=== PATIENT | male | born 1940 | race Caucasian/White ===

== ENCOUNTER 2018-06-20 06:14 | Inpatient (IN) | payer MEDICARE, OTHER ==
[2018-06-20] MEDS: HYDROCODONE/APAP (5/325) TAB PO (06:48)
[2018-06-20] MEDS ORDERED: HYDROmorphONE 2 MG/ML SYG IM (07:06)
[2018-06-20 07:31] LABS: ADD MAN DIFF? NO
[2018-06-20 07:33] LABS: WHITE BLOOD COUNT 8.7 10^3/ul (4.8-10.8)
[2018-06-20 07:33] LABS: BASOPHILS % 0.5 % (0.0-2.0); EOSINOPHILS # 0.1 10^3/ul (0.0-0.5); HEMATOCRIT 35.1 % (42.0-52.0); HEMOGLOBIN 11.1 g/dl (14.0-18.0); LYMPHOCYTES % 11.8 % (15.0-51.0); MEAN CORPUSCULAR HEMOGLOBIN 29.8 pg (29.0-33.0); MEAN CORPUSCULAR HGB CONC 31.6 g/dl (32.0-37.0); MEAN CORPUSCULAR VOLUME 94.4 fl (82.0-101.0); MEAN PLATELET VOLUME 11.1 fl (7.4-10.4); MONOCYTES % 11.7 % (0.0-11.0); NEUTROPHIL # 6.5 10^3/ul (1.6-7.5); NEUTROPHILS % 74.8 % (39.0-77.0); PLATELET COUNT 155 10^3/UL (140-415); RED BLOOD COUNT 3.72 10^6/ul (4.70-6.10); RED CELL DISTRIBUTION WIDTH 17.4 % (11.5-14.5)
[2018-06-20] MEDS: HYDROmorphONE 1 MG/ML SYG IV ×4 (07:38→19:24)
[2018-06-20] MEDS: ONDANSETRON 4 MG INJ IV ×2 (07:39→11:05)
[2018-06-20] MEDS: SOD CHLORIDE 0.9% 1,000 ML IV (07:39)
[2018-06-20] MEDS: CIPROFLOXACIN 400MG/D5W 200 ML IVPB (07:39)
[2018-06-20] MEDS: ONDANSETRON (ODT) 4 MG TAB ODT (07:40)
[2018-06-20 08:04] LABS: ALANINE AMINOTRANSFERASE 35 IU/L (13-69); ALBUMIN 2.9 g/dl (3.3-4.9); ALBUMIN/GLOBULIN RATIO 1.07; ALKALINE PHOSPHATASE 58 IU/L (42-121); ANION GAP 12 (8-16); ASPARTATE AMINO TRANSFERASE 26 IU/L (15-46); BILIRUBIN,INDIRECT 0.5 mg/dl (0-1.1); BILIRUBIN,TOTAL 0.5 mg/dl (0.2-1.3); BLOOD UREA NITROGEN 24 mg/dl (7-20); CALCIUM 8.9 mg/dl (8.4-10.2); CARBON DIOXIDE 25 mmol/L (21-31); CHLORIDE 106 mmol/L (97-110); CREATININE 2.03 mg/dl (0.61-1.24); GLUCOSE 121 mg/dl (70-220); POTASSIUM 4.1 mmol/L (3.5-5.1); SODIUM 139 mmol/L (135-144); TOTAL PROTEIN 5.6 g/dl (6.1-8.1)
[2018-06-20 08:40] LABS: TROPONIN-I 0.038 ng/ml (0.000-0.120)
[2018-06-20 08:59] LABS: PROSTATE SPECIFIC ANTIGEN 4.3 ng/ml (0.0-4.0)
[2018-06-20 09:23] LABS: ADD UMIC YES; UR ASCORBIC ACID NEGATIVE (NEGATIVE); UR BILIRUBIN (Dip) NEGATIVE (NEGATIVE); UR BLOOD (Dip) 2+ mg/dL (NEGATIVE); UR CLARITY CLOUDY (CLEAR); UR COLOR RED (YELLOW); UR GLUCOSE (Dip) 1+ mg/dL (NEGATIVE); UR KETONES (Dip) NEGATIVE (NEGATIVE); UR LEUKOCYTE ESTERASE (Dip) TRACE Leu/ul (NEGATIVE); UR NITRITE (Dip) NEGATIVE (NEGATIVE); UR RBC > 182 /HPF (0-5); UR SPECIFIC GRAVITY (Dip) 1.015 (1.003-1.030); UR TOTAL PROTEIN (Dip) 2+ mg/dl (NEGATIVE); UR UROBILINOGEN (Dip) NEGATIVE (NEGATIVE)
[2018-06-20 09:46] LABS: UR WBC > 182 /HPF (0-5)
[2018-06-20] MEDS ORDERED: ACETAMINOPHEN 325 MG TAB PO (10:30)
[2018-06-20] MEDS ORDERED: ONDANSETRON 4 MG INJ IV (10:30)
[2018-06-20] MEDS ORDERED: NACL 0.9% 3 ML SYG IV (14:00)
[2018-06-20] MEDS: morphine 2 MG INJ IV ×2 (16:07→20:19)
[2018-06-20] MEDS: CEFTRIAXONE 1 GM/50 ML (PMX) 50 ML IVPB (18:31)
[2018-06-20] MEDS: TAMSULOSIN (SR) 0.4 MG CAP PO (20:19)
[2018-06-20 20:52] LABS: PT RATIO 1.4
[2018-06-20 20:57] LABS: INR 1.48; PROTIME 18.2 Sec (11.9-14.9)
[2018-06-20 20:58] LABS: PARTIAL THROMBOPLASTIN TIME 27.4 Sec (25.0-35.0)
[2018-06-21] MEDS: morphine 2 MG INJ IV ×2 (00:11→02:00)
[2018-06-21] MEDS: HYDROmorphONE 2 MG/ML SYG IV (04:10)
[2018-06-21] MEDS ORDERED: NALOXONE (0.4 MG/ML) INJ (04:24)
[2018-06-21] MEDS: HYOSCYAMINE 0.125 MG SUBL TAB SL ×2 (06:48→17:08)
[2018-06-21] MEDS: LEVOTHYROXINE 150 MCG TAB PO (06:49)
[2018-06-21] MEDS: HYDROmorphONE 1 MG/ML SYG IV ×4 (06:49→18:52)
[2018-06-21 07:07] LABS: ADD MAN DIFF? NO
[2018-06-21 07:13] LABS: WHITE BLOOD COUNT 13.1 10^3/ul (4.8-10.8)
[2018-06-21 07:13] LABS: ABNORMAL IP MESSAGE 1; BASOPHILS % 0.3 % (0.0-2.0); EOSINOPHILS # 0.1 10^3/ul (0.0-0.5); EOSINOPHILS % 0.7 % (0.0-7.0); HEMATOCRIT 37.7 % (42.0-52.0); HEMOGLOBIN 11.8 g/dl (14.0-18.0); LYMPHOCYTES % 7.9 % (15.0-51.0); MEAN CORPUSCULAR HEMOGLOBIN 29.6 pg (29.0-33.0); MEAN CORPUSCULAR HGB CONC 31.3 g/dl (32.0-37.0); MEAN CORPUSCULAR VOLUME 94.5 fl (82.0-101.0); MEAN PLATELET VOLUME 12.1 fl (7.4-10.4); MONOCYTE # 1.7 10^3/ul (0.3-0.9); NEUTROPHIL # 10.2 10^3/ul (1.6-7.5); NEUTROPHILS % 77.7 % (39.0-77.0); PLATELET COUNT 171 10^3/UL (140-415); POSITIVE DIFF @See below; RED BLOOD COUNT 3.99 10^6/ul (4.70-6.10); RED CELL DISTRIBUTION WIDTH 17.2 % (11.5-14.5)
[2018-06-21 07:53] LABS: ALANINE AMINOTRANSFERASE 30 IU/L (13-69); ALBUMIN 3.1 g/dl (3.3-4.9); ALBUMIN/GLOBULIN RATIO 1.03; ALKALINE PHOSPHATASE 65 IU/L (42-121); ANION GAP 13 (8-16); ASPARTATE AMINO TRANSFERASE 32 IU/L (15-46); BILIRUBIN,INDIRECT 0.6 mg/dl (0-1.1); BILIRUBIN,TOTAL 0.6 mg/dl (0.2-1.3); BLOOD UREA NITROGEN 26 mg/dl (7-20); CARBON DIOXIDE 22 mmol/L (21-31); CHLORIDE 108 mmol/L (97-110); CREATININE 2.15 mg/dl (0.61-1.24); GLUCOSE 137 mg/dl (70-220); POTASSIUM 4.6 mmol/L (3.5-5.1); SODIUM 138 mmol/L (135-144); TOTAL PROTEIN 6.1 g/dl (6.1-8.1)
[2018-06-21] MEDS: AMIODARONE 200 MG TAB PO (09:20)
[2018-06-21 09:34] LABS: HEMOGLOBIN A1C 5.8 % (0-5.9)
[2018-06-21 12:42] LABS: AADO2 Arterial 93.8 mmHg (7.0-24.0); Arterial Base Excess -6.2 mmol/L (-3.0-3); Arterial Blood Gas Oxygen Sat 98.5 mmHG (95.0-100.0); Arterial COHb 0.1 % (0.0-3.0); Arterial Fraction of Oxyhgb 98.1 % (93.0-99.0); Arterial MetHb 0.3 % (0.0-1.5); Arterial Total Hemglobin 12.6 g/dl (12.0-18.0); Arterial pCO2 42.1 mmhg (35-45); Blood Gas PS 15; MODE MASK - CPAP; Site Right Brachial
[2018-06-21 13:44] LABS: LACTIC ACID 1.1 mmol/L (0.5-2.0)
[2018-06-21] MEDS: CEFTRIAXONE 1 GM/50 ML (PMX) 50 ML IVPB (17:03)
[2018-06-21] MEDS: morphine LIQ (10 MG/5 ML) CUP PO (20:49)
[2018-06-21] MEDS: TAMSULOSIN (SR) 0.4 MG CAP PO (20:49)
[2018-06-22] MEDS: HYDROmorphONE 1 MG/ML SYG IV ×6 (00:02→22:01)
[2018-06-22] MEDS: morphine LIQ (10 MG/5 ML) CUP PO ×3 (04:53→19:38)
[2018-06-22 05:43] LABS: ADD MAN DIFF? NO
[2018-06-22 05:51] LABS: ABNORMAL IP MESSAGE 1; BASOPHILS % 0.3 % (0.0-2.0); EOSINOPHILS # 0.2 10^3/ul (0.0-0.5); EOSINOPHILS % 1.5 % (0.0-7.0); HEMATOCRIT 35.5 % (42.0-52.0); LYMPHOCYTES # 1.2 10^3/ul (0.8-2.9); LYMPHOCYTES % 11.1 % (15.0-51.0); MEAN CORPUSCULAR HEMOGLOBIN 29.6 pg (29.0-33.0); MEAN CORPUSCULAR VOLUME 95.7 fl (82.0-101.0); MEAN PLATELET VOLUME 11.7 fl (7.4-10.4); MONOCYTE # 1.8 10^3/ul (0.3-0.9); MONOCYTES % 15.9 % (0.0-11.0); NEUTROPHIL # 7.9 10^3/ul (1.6-7.5); NEUTROPHILS % 70.8 % (39.0-77.0); PLATELET COUNT 158 10^3/UL (140-415); POSITIVE DIFF @See below; RED BLOOD COUNT 3.71 10^6/ul (4.70-6.10); RED CELL DISTRIBUTION WIDTH 17.2 % (11.5-14.5)
[2018-06-22 05:51] LABS: WHITE BLOOD COUNT 11.1 10^3/ul (4.8-10.8)
[2018-06-22 06:11] LABS: ANION GAP 15 (8-16); BLOOD UREA NITROGEN 37 mg/dl (7-20); CALCIUM 8.9 mg/dl (8.4-10.2); CARBON DIOXIDE 23 mmol/L (21-31); CHLORIDE 105 mmol/L (97-110); CREATININE 2.91 mg/dl (0.61-1.24); GLUCOSE 118 mg/dl (70-220); POTASSIUM 4.7 mmol/L (3.5-5.1); SODIUM 138 mmol/L (135-144)
[2018-06-22] MEDS: HYOSCYAMINE 0.125 MG SUBL TAB SL ×2 (06:38→12:09)
[2018-06-22] MEDS: LEVOTHYROXINE 150 MCG TAB PO (06:38)
[2018-06-22] MEDS: AMIODARONE 200 MG TAB PO (08:47)
[2018-06-22] MEDS: CEFTRIAXONE 1 GM/50 ML (PMX) 50 ML IVPB (17:45)
[2018-06-22] MEDS: TAMSULOSIN (SR) 0.4 MG CAP PO (20:16)
[2018-06-23] MEDS: morphine LIQ (10 MG/5 ML) CUP PO ×3 (00:19→19:29)
[2018-06-23] MEDS: HYDROmorphONE 1 MG/ML SYG IV ×5 (02:13→22:24)
[2018-06-23 06:18] LABS: ADD MAN DIFF? NO
[2018-06-23 06:27] LABS: ABNORMAL IP MESSAGE 1; BASOPHILS % 0.2 % (0.0-2.0); EOSINOPHILS # 0.1 10^3/ul (0.0-0.5); EOSINOPHILS % 1.4 % (0.0-7.0); HEMATOCRIT 31.4 % (42.0-52.0); LYMPHOCYTES # 1.1 10^3/ul (0.8-2.9); MEAN CORPUSCULAR HEMOGLOBIN 30.1 pg (29.0-33.0); MEAN CORPUSCULAR HGB CONC 31.8 g/dl (32.0-37.0); MEAN CORPUSCULAR VOLUME 94.6 fl (82.0-101.0); MEAN PLATELET VOLUME 12.1 fl (7.4-10.4); MONOCYTE # 1.6 10^3/ul (0.3-0.9); MONOCYTES % 17.4 % (0.0-11.0); NEUTROPHIL # 6.2 10^3/ul (1.6-7.5); NEUTROPHILS % 68.7 % (39.0-77.0); PLATELET COUNT 146 10^3/UL (140-415); POSITIVE DIFF @See below; RED BLOOD COUNT 3.32 10^6/ul (4.70-6.10); RED CELL DISTRIBUTION WIDTH 16.9 % (11.5-14.5)
[2018-06-23 06:27] LABS: WHITE BLOOD COUNT 9.1 10^3/ul (4.8-10.8)
[2018-06-23] MEDS: LEVOTHYROXINE 150 MCG TAB PO (06:46)
[2018-06-23] MEDS: AMIODARONE 200 MG TAB PO (09:06)
[2018-06-23 09:13] LABS: ANION GAP 15 (8-16); BLOOD UREA NITROGEN 49 mg/dl (7-20); CALCIUM 8.5 mg/dl (8.4-10.2); CARBON DIOXIDE 24 mmol/L (21-31); CHLORIDE 102 mmol/L (97-110); CREATININE 3.13 mg/dl (0.61-1.24); GLUCOSE 110 mg/dl (70-220); MAGNESIUM 2.2 mg/dl (1.7-2.5); POTASSIUM 4.5 mmol/L (3.5-5.1); SODIUM 136 mmol/L (135-144)
[2018-06-23] MEDS: SENNA TAB PO (20:35)
[2018-06-23] MEDS: TAMSULOSIN (SR) 0.4 MG CAP PO (20:35)
[2018-06-23] MEDS: MAGNESIUM HYDROXIDE 30ML CUP PO (20:35)
[2018-06-24] MEDS: morphine LIQ (10 MG/5 ML) CUP PO ×2 (02:43→09:04)
[2018-06-24 05:43] LABS: ADD MAN DIFF? NO
[2018-06-24 05:48] LABS: BASOPHILS % 0.2 % (0.0-2.0); EOSINOPHILS # 0.1 10^3/ul (0.0-0.5); EOSINOPHILS % 1.1 % (0.0-7.0); HEMATOCRIT 31.2 % (42.0-52.0); LYMPHOCYTES # 0.6 10^3/ul (0.8-2.9); LYMPHOCYTES % 7.6 % (15.0-51.0); MEAN CORPUSCULAR HEMOGLOBIN 29.7 pg (29.0-33.0); MEAN CORPUSCULAR HGB CONC 32.1 g/dl (32.0-37.0); MEAN CORPUSCULAR VOLUME 92.6 fl (82.0-101.0); MEAN PLATELET VOLUME 11.3 fl (7.4-10.4); MONOCYTE # 1.3 10^3/ul (0.3-0.9); MONOCYTES % 16.1 % (0.0-11.0); NEUTROPHIL # 6.1 10^3/ul (1.6-7.5); NEUTROPHILS % 74.5 % (39.0-77.0); PLATELET COUNT 155 10^3/UL (140-415); RED BLOOD COUNT 3.37 10^6/ul (4.70-6.10); RED CELL DISTRIBUTION WIDTH 16.3 % (11.5-14.5)
[2018-06-24 05:48] LABS: WHITE BLOOD COUNT 8.3 10^3/ul (4.8-10.8)
[2018-06-24 06:21] LABS: ANION GAP 12 (8-16); BLOOD UREA NITROGEN 62 mg/dl (7-20); CALCIUM 8.4 mg/dl (8.4-10.2); CARBON DIOXIDE 24 mmol/L (21-31); CHLORIDE 104 mmol/L (97-110); GLUCOSE 138 mg/dl (70-220); POTASSIUM 4.4 mmol/L (3.5-5.1); SODIUM 136 mmol/L (135-144)
[2018-06-24] MEDS: HYDROmorphONE 1 MG/ML SYG IV ×5 (06:34→22:01)
[2018-06-24] MEDS: LEVOTHYROXINE 150 MCG TAB PO (06:34)
[2018-06-24] MEDS: SENNA TAB PO ×2 (09:04→21:38)
[2018-06-24] MEDS: AMIODARONE 200 MG TAB PO (09:04)
[2018-06-24] MEDS ORDERED: LEVALBUTEROL (NEB) 0.63 MG/3 ML AMP HHN (14:30)
[2018-06-24] MEDS: ONDANSETRON 4 MG INJ IV (17:10)
[2018-06-24] MEDS: TAMSULOSIN (SR) 0.4 MG CAP PO (21:37)
[2018-06-24] MEDS: ATORVASTATIN 20 MG TAB PO (21:38)
[2018-06-24] MEDS: AMLODIPINE 5 MG TAB PO (21:38)
[2018-06-25] MEDS: HYDROmorphONE 1 MG/ML SYG IV ×5 (02:01→19:15)
[2018-06-25 05:42] LABS: ADD MAN DIFF? NO
[2018-06-25 05:47] LABS: BASOPHILS % 0.3 % (0.0-2.0); EOSINOPHILS # 0.2 10^3/ul (0.0-0.5); EOSINOPHILS % 2.6 % (0.0-7.0); HEMATOCRIT 31.6 % (42.0-52.0); LYMPHOCYTES # 0.9 10^3/ul (0.8-2.9); LYMPHOCYTES % 13.3 % (15.0-51.0); MEAN CORPUSCULAR HEMOGLOBIN 29.8 pg (29.0-33.0); MEAN CORPUSCULAR HGB CONC 31.6 g/dl (32.0-37.0); MEAN PLATELET VOLUME 11.1 fl (7.4-10.4); MONOCYTE # 1.3 10^3/ul (0.3-0.9); MONOCYTES % 18.2 % (0.0-11.0); NEUTROPHIL # 4.6 10^3/ul (1.6-7.5); NEUTROPHILS % 65.2 % (39.0-77.0); PLATELET COUNT 166 10^3/UL (140-415); RED BLOOD COUNT 3.36 10^6/ul (4.70-6.10); RED CELL DISTRIBUTION WIDTH 16.5 % (11.5-14.5)
[2018-06-25] MEDS: HYOSCYAMINE 0.125 MG SUBL TAB SL (05:53)
[2018-06-25 06:08] LABS: MAGNESIUM 3.1 mg/dl (1.7-2.5)
[2018-06-25 06:15] LABS: ANION GAP 12 (8-16); BLOOD UREA NITROGEN 57 mg/dl (7-20); CALCIUM 8.6 mg/dl (8.4-10.2); CARBON DIOXIDE 26 mmol/L (21-31); CHLORIDE 105 mmol/L (97-110); CREATININE 2.11 mg/dl (0.61-1.24); GLUCOSE 97 mg/dl (70-220); POTASSIUM 4.6 mmol/L (3.5-5.1); SODIUM 138 mmol/L (135-144)
[2018-06-25 06:18] LABS: CHOL/HDL RATIO 3.6 RATIO; HDL CHOLESTEROL 36 mg/dl (31-75); LDL CHOLESTEROL,CALCULATED 71 mg/dl; TRIGLYCERIDES 117 mg/dl (0-149)
[2018-06-25 06:18] LABS: CHOLESTEROL 130 mg/dl (100-200)
[2018-06-25] MEDS: LEVOTHYROXINE 150 MCG TAB PO (07:00)
[2018-06-25] MEDS: SENNA TAB PO ×2 (09:04→20:50)
[2018-06-25] MEDS: AMIODARONE 200 MG TAB PO (09:05)
[2018-06-25] MEDS: AMLODIPINE 5 MG TAB PO ×2 (09:05→20:51)
[2018-06-25] MEDS: NA PHOSPHATE/BIPHOS 133 ML ENEMA PR (10:12)
[2018-06-25] MEDS: ATORVASTATIN 20 MG TAB PO (20:50)
[2018-06-25] MEDS: TAMSULOSIN (SR) 0.4 MG CAP PO (20:50)
[2018-06-25] MEDS: POLYETHYLENE GLYCOL 17 GM PACKET PO (20:51)
[2018-06-25] MEDS: morphine LIQ (10 MG/5 ML) CUP PO (21:03)
[2018-06-26] MEDS: HYDROmorphONE 1 MG/ML SYG IV ×3 (01:00→16:18)
[2018-06-26] MEDS: morphine LIQ (10 MG/5 ML) CUP PO ×2 (02:57→11:47)
[2018-06-26 06:37] LABS: ADD MAN DIFF? NO
[2018-06-26 06:44] LABS: BASOPHILS % 0.6 % (0.0-2.0); EOSINOPHILS # 0.2 10^3/ul (0.0-0.5); EOSINOPHILS % 2.5 % (0.0-7.0); HEMOGLOBIN 9.6 g/dl (14.0-18.0); LYMPHOCYTES # 0.8 10^3/ul (0.8-2.9); LYMPHOCYTES % 11.1 % (15.0-51.0); MEAN CORPUSCULAR HEMOGLOBIN 29.8 pg (29.0-33.0); MEAN CORPUSCULAR VOLUME 93.2 fl (82.0-101.0); MEAN PLATELET VOLUME 11.5 fl (7.4-10.4); MONOCYTE # 1.2 10^3/ul (0.3-0.9); MONOCYTES % 16.7 % (0.0-11.0); NEUTROPHIL # 4.8 10^3/ul (1.6-7.5); NEUTROPHILS % 68.7 % (39.0-77.0); PLATELET COUNT 176 10^3/UL (140-415); RED BLOOD COUNT 3.22 10^6/ul (4.70-6.10); RED CELL DISTRIBUTION WIDTH 16.4 % (11.5-14.5)
[2018-06-26 06:44] LABS: WHITE BLOOD COUNT 6.9 10^3/ul (4.8-10.8)
[2018-06-26 07:03] LABS: MAGNESIUM 2.6 mg/dl (1.7-2.5)
[2018-06-26 07:03] LABS: PHOSPHORUS 3.4 mg/dl (2.5-4.9)
[2018-06-26] MEDS: LEVOTHYROXINE 150 MCG TAB PO (07:04)
[2018-06-26 07:31] LABS: ANION GAP 10 (8-16); BLOOD UREA NITROGEN 43 mg/dl (7-20); CALCIUM 8.4 mg/dl (8.4-10.2); CARBON DIOXIDE 26 mmol/L (21-31); CHLORIDE 106 mmol/L (97-110); CREATININE 1.53 mg/dl (0.61-1.24); GLUCOSE 94 mg/dl (70-220); POTASSIUM 4.3 mmol/L (3.5-5.1); SODIUM 138 mmol/L (135-144)
[2018-06-26] MEDS: POLYETHYLENE GLYCOL 17 GM PACKET PO ×2 (09:00→21:00)
[2018-06-26] MEDS: AMIODARONE 200 MG TAB PO (09:00)
[2018-06-26] MEDS: AMLODIPINE 5 MG TAB PO (09:00)
[2018-06-26] MEDS: SENNA TAB PO ×2 (09:01→21:16)
[2018-06-26] MEDS: oxyCODONE (CR) 15 MG TAB [oxyCONTIN] PO ×2 (15:08→21:16)
[2018-06-26] MEDS: TAMSULOSIN (SR) 0.4 MG CAP PO (21:15)
[2018-06-26] MEDS: ATORVASTATIN 20 MG TAB PO (21:18)
[2018-06-27] MEDS: ALPRAZOLAM 0.25 MG TAB PO (00:59)
[2018-06-27 06:45] LABS: ALANINE AMINOTRANSFERASE 40 IU/L (13-69); ALBUMIN 2.4 g/dl (3.3-4.9); ALBUMIN/GLOBULIN RATIO 0.92; ALKALINE PHOSPHATASE 51 IU/L (42-121); ANION GAP 10 (8-16); ASPARTATE AMINO TRANSFERASE 33 IU/L (15-46); BILIRUBIN,INDIRECT 0.3 mg/dl (0-1.1); BILIRUBIN,TOTAL 0.3 mg/dl (0.2-1.3); BLOOD UREA NITROGEN 27 mg/dl (7-20); CALCIUM 8.3 mg/dl (8.4-10.2); CARBON DIOXIDE 26 mmol/L (21-31); CHLORIDE 108 mmol/L (97-110); CREATININE 1.18 mg/dl (0.61-1.24); GLUCOSE 78 mg/dl (70-220); MAGNESIUM 2.2 mg/dl (1.7-2.5); SODIUM 140 mmol/L (135-144)
[2018-06-27 06:47] LABS: B-TYPE NATRIURETIC PEPTIDE 4990 PG/ML (0-450)
[2018-06-27] MEDS: LEVOTHYROXINE 150 MCG TAB PO (07:41)
[2018-06-27] MEDS: oxyCODONE (CR) 15 MG TAB [oxyCONTIN] PO ×2 (08:51→20:25)
[2018-06-27] MEDS: POLYETHYLENE GLYCOL 17 GM PACKET PO ×2 (08:51→21:00)
[2018-06-27] MEDS: SENNA TAB PO ×2 (08:51→21:00)
[2018-06-27] MEDS: AMIODARONE 200 MG TAB PO (08:52)
[2018-06-27] MEDS: AMLODIPINE 5 MG TAB PO (08:52)
[2018-06-27] MEDS: ISOSORBIDE MONONITRATE(SR)60 MG TAB PO (08:52)
[2018-06-27] MEDS: ATORVASTATIN 20 MG TAB PO (20:22)
[2018-06-27] MEDS: TAMSULOSIN (SR) 0.4 MG CAP PO (20:22)
[2018-06-27] MEDS: HYDROmorphONE 1 MG/ML SYG IV (22:47)
[2018-06-28] MEDS: LEVOTHYROXINE 150 MCG TAB PO (07:23)
[2018-06-28] MEDS: oxyCODONE (CR) 15 MG TAB [oxyCONTIN] PO ×3 (08:00→20:09)
[2018-06-28] MEDS: ISOSORBIDE MONONITRATE(SR)60 MG TAB PO (08:00)
[2018-06-28] MEDS: AMLODIPINE 5 MG TAB PO (08:00)
[2018-06-28] MEDS: AMIODARONE 200 MG TAB PO (08:00)
[2018-06-28] MEDS: SENNA TAB PO ×2 (08:01→20:07)
[2018-06-28] MEDS: POLYETHYLENE GLYCOL 17 GM PACKET PO ×2 (08:01→20:08)
[2018-06-28] MEDS: ATORVASTATIN 20 MG TAB PO (20:06)
[2018-06-28] MEDS: TAMSULOSIN (SR) 0.4 MG CAP PO (20:08)
[2018-06-28] MEDS: morphine LIQ (10 MG/5 ML) CUP PO ×2 (21:11→23:36)
[2018-06-28 22:30] LABS: ADD MAN DIFF? NO
[2018-06-28 22:34] LABS: WHITE BLOOD COUNT 9.7 10^3/ul (4.8-10.8)
[2018-06-28 22:34] LABS: BASOPHILS % 0.3 % (0.0-2.0); EOSINOPHILS # 0.2 10^3/ul (0.0-0.5); EOSINOPHILS % 1.6 % (0.0-7.0); HEMATOCRIT 30.6 % (42.0-52.0); HEMOGLOBIN 9.8 g/dl (14.0-18.0); LYMPHOCYTES # 0.8 10^3/ul (0.8-2.9); MEAN CORPUSCULAR HEMOGLOBIN 29.4 pg (29.0-33.0); MEAN CORPUSCULAR VOLUME 91.9 fl (82.0-101.0); MEAN PLATELET VOLUME 11.3 fl (7.4-10.4); MONOCYTE # 1.2 10^3/ul (0.3-0.9); MONOCYTES % 12.7 % (0.0-11.0); NEUTROPHIL # 7.4 10^3/ul (1.6-7.5); NEUTROPHILS % 76.8 % (39.0-77.0); PLATELET COUNT 205 10^3/UL (140-415); RED BLOOD COUNT 3.33 10^6/ul (4.70-6.10); RED CELL DISTRIBUTION WIDTH 16.2 % (11.5-14.5)
[2018-06-28 23:00] LABS: ALANINE AMINOTRANSFERASE 31 IU/L (13-69); ALBUMIN 2.9 g/dl (3.3-4.9); ALBUMIN/GLOBULIN RATIO 1.16; ALKALINE PHOSPHATASE 59 IU/L (42-121); ANION GAP 7 (8-16); ASPARTATE AMINO TRANSFERASE 33 IU/L (15-46); BILIRUBIN,INDIRECT 0.3 mg/dl (0-1.1); BILIRUBIN,TOTAL 0.3 mg/dl (0.2-1.3); BLOOD UREA NITROGEN 20 mg/dl (7-20); CALCIUM 8.2 mg/dl (8.4-10.2); CARBON DIOXIDE 26 mmol/L (21-31); CHLORIDE 106 mmol/L (97-110); CREATININE 1.02 mg/dl (0.61-1.24); GLUCOSE 138 mg/dl (70-220); POTASSIUM 4.1 mmol/L (3.5-5.1); SODIUM 135 mmol/L (135-144); TOTAL PROTEIN 5.4 g/dl (6.1-8.1)
[2018-06-29] MEDS: HYDROmorphONE 1 MG/ML SYG IV ×5 (01:00→23:34)
[2018-06-29] MEDS: LEVOTHYROXINE 150 MCG TAB PO (06:29)
[2018-06-29] MEDS: AMIODARONE 200 MG TAB PO (08:24)
[2018-06-29] MEDS: ISOSORBIDE MONONITRATE(SR)60 MG TAB PO (08:25)
[2018-06-29] MEDS: AMLODIPINE 5 MG TAB PO (08:25)
[2018-06-29] MEDS: SENNA TAB PO ×2 (08:25→20:24)
[2018-06-29] MEDS: POLYETHYLENE GLYCOL 17 GM PACKET PO ×2 (08:25→20:24)
[2018-06-29] MEDS: oxyCODONE (CR) 15 MG TAB [oxyCONTIN] PO ×2 (08:25→20:26)
[2018-06-29] MEDS: ATORVASTATIN 20 MG TAB PO (20:24)
[2018-06-29] MEDS: TAMSULOSIN (SR) 0.4 MG CAP PO (20:24)
[2018-06-29] MEDS: HYOSCYAMINE 0.125 MG SUBL TAB SL (20:26)
[2018-06-29] MEDS: BISACODYL 10 MG SUPP PR (23:34)
[2018-06-30] MEDS: LORAZEPAM 2 MG INJ IV (01:43)
[2018-06-30] MEDS: LEVOTHYROXINE 150 MCG TAB PO (06:14)
[2018-06-30] MEDS ORDERED: IOHEXOL 300MG/ML 30 ML BTL (07:05)
[2018-06-30 07:50] LABS: IMMEDIATE SPIN CROSSMATCH 1 2
[2018-06-30] MEDS ORDERED: INDIGOTINDISULFONATE 0.8% 5 ML INJ (08:04)
[2018-06-30] MEDS: SENNA TAB PO ×2 (09:00→20:50)
[2018-06-30] MEDS: POLYETHYLENE GLYCOL 17 GM PACKET PO ×2 (09:00→20:58)
[2018-06-30] MEDS: oxyCODONE (CR) 15 MG TAB [oxyCONTIN] PO ×2 (09:00→22:33)
[2018-06-30] MEDS: HYDROmorphONE 1 MG/ML SYG IV ×2 (12:03→20:57)
[2018-06-30] MEDS: morphine LIQ (10 MG/5 ML) CUP PO (15:29)
[2018-06-30] MEDS: AMLODIPINE 5 MG TAB PO (15:40)
[2018-06-30] MEDS: AMIODARONE 200 MG TAB PO (15:40)
[2018-06-30] MEDS: ISOSORBIDE MONONITRATE(SR)60 MG TAB PO (15:40)
[2018-06-30] MEDS: TAMSULOSIN (SR) 0.4 MG CAP PO (20:50)
[2018-06-30] MEDS: ATORVASTATIN 20 MG TAB PO (20:50)
[2018-06-30] MEDS: TOLTERODINE (SR) 4 MG CAP PO (23:30)
[2018-07-01] MEDS: HYDROmorphONE 1 MG/ML SYG IV ×2 (00:30→07:40)
[2018-07-01] MEDS: LEVOTHYROXINE 150 MCG TAB PO (07:00)
[2018-07-01] MEDS: POLYETHYLENE GLYCOL 17 GM PACKET PO (08:37)
[2018-07-01] MEDS: AMIODARONE 200 MG TAB PO (08:37)
[2018-07-01] MEDS: SENNA TAB PO ×2 (08:37→20:38)
[2018-07-01] MEDS: AMLODIPINE 5 MG TAB PO (08:38)
[2018-07-01] MEDS: oxyCODONE (CR) 15 MG TAB [oxyCONTIN] PO ×2 (08:39→20:38)
[2018-07-01] MEDS: ISOSORBIDE MONONITRATE(SR)60 MG TAB PO (08:41)
[2018-07-01] MEDS: ATORVASTATIN 20 MG TAB PO (20:34)
[2018-07-01] MEDS: TAMSULOSIN (SR) 0.4 MG CAP PO (20:38)
[2018-07-02] MEDS: POLYETHYLENE GLYCOL 17 GM PACKET PO ×3 (01:16→20:20)
[2018-07-02] MEDS: NA PHOSPHATE/BIPHOS 133 ML ENEMA PR (01:17)
[2018-07-02] MEDS: MAGNESIUM HYDROXIDE 30ML CUP PO (05:04)
[2018-07-02] MEDS: HYDROmorphONE 1 MG/ML SYG IV ×2 (05:06→14:06)
[2018-07-02 05:43] LABS: ADD MAN DIFF? NO
[2018-07-02 05:51] LABS: WHITE BLOOD COUNT 16.9 10^3/ul (4.8-10.8)
[2018-07-02 05:51] LABS: BASOPHILS % 0.2 % (0.0-2.0); EOSINOPHILS # 0.1 10^3/ul (0.0-0.5); EOSINOPHILS % 0.5 % (0.0-7.0); HEMATOCRIT 33.3 % (42.0-52.0); HEMOGLOBIN 10.7 g/dl (14.0-18.0); LYMPHOCYTES # 1.2 10^3/ul (0.8-2.9); LYMPHOCYTES % 7.3 % (15.0-51.0); MEAN CORPUSCULAR HEMOGLOBIN 29.3 pg (29.0-33.0); MEAN CORPUSCULAR HGB CONC 32.1 g/dl (32.0-37.0); MEAN CORPUSCULAR VOLUME 91.2 fl (82.0-101.0); MEAN PLATELET VOLUME 10.8 fl (7.4-10.4); MONOCYTE # 1.5 10^3/ul (0.3-0.9); MONOCYTES % 8.8 % (0.0-11.0); NEUTROPHIL # 13.9 10^3/ul (1.6-7.5); NEUTROPHILS % 82.4 % (39.0-77.0); PLATELET COUNT 223 10^3/UL (140-415); RED BLOOD COUNT 3.65 10^6/ul (4.70-6.10); RED CELL DISTRIBUTION WIDTH 16.8 % (11.5-14.5)
[2018-07-02 06:16] LABS: ANION GAP 10 (8-16); BLOOD UREA NITROGEN 25 mg/dl (7-20); CALCIUM 8.7 mg/dl (8.4-10.2); CARBON DIOXIDE 25 mmol/L (21-31); CHLORIDE 110 mmol/L (97-110); CREATININE 1.27 mg/dl (0.61-1.24); GLUCOSE 121 mg/dl (70-220); SODIUM 141 mmol/L (135-144)
[2018-07-02] MEDS: LEVOTHYROXINE 150 MCG TAB PO (06:57)
[2018-07-02] MEDS: SENNA TAB PO ×2 (08:59→20:20)
[2018-07-02] MEDS: AMIODARONE 200 MG TAB PO (09:00)
[2018-07-02] MEDS: ISOSORBIDE MONONITRATE(SR)60 MG TAB PO (09:00)
[2018-07-02] MEDS: oxyCODONE (CR) 15 MG TAB [oxyCONTIN] PO ×2 (09:01→20:21)
[2018-07-02] MEDS: AMLODIPINE 5 MG TAB PO (09:02)
[2018-07-02] MEDS: BISACODYL 10 MG SUPP PR (11:03)
[2018-07-02] MEDS: morphine LIQ (10 MG/5 ML) CUP PO (13:43)
[2018-07-02] MEDS: TAMSULOSIN (SR) 0.4 MG CAP PO (20:21)
[2018-07-02] MEDS: ATORVASTATIN 20 MG TAB PO (20:21)
[2018-07-03] MEDS ORDERED: DEXAMETHASONE 4 MG/ML 1 ML INJ (00:11)
[2018-07-03] MEDS ORDERED: FAMOTIDINE 20 MG INJ (00:11)
[2018-07-03] MEDS ORDERED: PHENYLephrine (100 MCG/ML) 5ML SYG (00:11)
[2018-07-03] MEDS ORDERED: CEFAZOLIN 1 GM INJ (00:11)
[2018-07-03] MEDS ORDERED: ROCURONIUM 50 MG INJ (00:11)
[2018-07-03] MEDS ORDERED: ETOMIDATE 20 MG INJ (00:11)
[2018-07-03] MEDS ORDERED: ONDANSETRON 4 MG INJ (00:11)
[2018-07-03] MEDS ORDERED: LIDOCAINE 2% (SDV) 5 ML INJ (00:11)
[2018-07-03] MEDS ORDERED: ACETAMINOPHEN 1000MG/100ML IV 100 ML (00:11)
[2018-07-03] MEDS ORDERED: SUGAMMADEX SODIUM 200 MG/2 ML VIAL IV (00:11)
[2018-07-03] MEDS ORDERED: MIDAZOLAM 1 MG/ML 2 ML INJ (00:11)
[2018-07-03] MEDS ORDERED: METOCLOPRAMIDE 10 MG INJ (00:11)
[2018-07-03] MEDS: LEVOTHYROXINE 150 MCG TAB PO (06:40)
[2018-07-03] MEDS: ISOSORBIDE MONONITRATE(SR)60 MG TAB PO (08:55)
[2018-07-03] MEDS: AMIODARONE 200 MG TAB PO (08:55)
[2018-07-03] MEDS: oxyCODONE (CR) 15 MG TAB [oxyCONTIN] PO ×2 (08:55→21:37)
[2018-07-03] MEDS: AMLODIPINE 5 MG TAB PO (08:55)
[2018-07-03] MEDS: POLYETHYLENE GLYCOL 17 GM PACKET PO ×2 (08:56→21:38)
[2018-07-03] MEDS: SENNA TAB PO ×2 (08:56→21:37)
[2018-07-03] MEDS: HYDROmorphONE 1 MG/ML SYG IV (11:37)
[2018-07-03] MEDS: ATORVASTATIN 20 MG TAB PO (21:37)
[2018-07-03] MEDS: TAMSULOSIN (SR) 0.4 MG CAP PO (21:37)
[2018-07-04] MEDS: morphine LIQ (10 MG/5 ML) CUP PO (00:04)
[2018-07-04] MEDS: HYDROmorphONE 1 MG/ML SYG IV ×2 (03:02→09:00)
[2018-07-04] MEDS: BISACODYL 10 MG SUPP PR (05:49)
[2018-07-04] MEDS: morphine 2 MG INJ IV (05:49)
[2018-07-04] MEDS: MAGNESIUM HYDROXIDE 30ML CUP PO (05:50)
[2018-07-04] MEDS: LEVOTHYROXINE 150 MCG TAB PO (09:00)
[2018-07-04] MEDS: POLYETHYLENE GLYCOL 17 GM PACKET PO ×2 (09:00→21:00)
[2018-07-04] MEDS: AMIODARONE 200 MG TAB PO (09:02)
[2018-07-04] MEDS: ISOSORBIDE MONONITRATE(SR)60 MG TAB PO (09:03)
[2018-07-04] MEDS: SENNA TAB PO ×2 (09:03→21:00)
[2018-07-04] MEDS: AMLODIPINE 5 MG TAB PO (09:04)
[2018-07-04] MEDS: oxyCODONE (CR) 15 MG TAB [oxyCONTIN] PO ×2 (09:06→21:00)
[2018-07-04] MEDS: TAMSULOSIN (SR) 0.4 MG CAP PO (21:03)
[2018-07-04] MEDS: ATORVASTATIN 20 MG TAB PO (21:03)
[2018-07-05 05:42] LABS: ADD MAN DIFF? NO
[2018-07-05 05:57] LABS: WHITE BLOOD COUNT 14.6 10^3/ul (4.8-10.8)
[2018-07-05 05:58] LABS: BASOPHILS % 0.3 % (0.0-2.0); EOSINOPHILS # 0.2 10^3/ul (0.0-0.5); HEMATOCRIT 31.7 % (42.0-52.0); HEMOGLOBIN 10.2 g/dl (14.0-18.0); LYMPHOCYTES # 1.1 10^3/ul (0.8-2.9); LYMPHOCYTES % 7.6 % (15.0-51.0); MEAN CORPUSCULAR HEMOGLOBIN 29.1 pg (29.0-33.0); MEAN CORPUSCULAR HGB CONC 32.2 g/dl (32.0-37.0); MEAN CORPUSCULAR VOLUME 90.3 fl (82.0-101.0); MEAN PLATELET VOLUME 11.6 fl (7.4-10.4); MONOCYTE # 1.4 10^3/ul (0.3-0.9); MONOCYTES % 9.7 % (0.0-11.0); NEUTROPHIL # 11.8 10^3/ul (1.6-7.5); NEUTROPHILS % 80.9 % (39.0-77.0); PLATELET COUNT 206 10^3/UL (140-415); RED BLOOD COUNT 3.51 10^6/ul (4.70-6.10)
[2018-07-05] MEDS: LEVOTHYROXINE 150 MCG TAB PO (06:11)
[2018-07-05 06:30] LABS: ANION GAP 10 (8-16); BLOOD UREA NITROGEN 20 mg/dl (7-20); CALCIUM 8.3 mg/dl (8.4-10.2); CARBON DIOXIDE 27 mmol/L (21-31); CHLORIDE 102 mmol/L (97-110); CREATININE 1.17 mg/dl (0.61-1.24); GLUCOSE 121 mg/dl (70-220); MAGNESIUM 2.1 mg/dl (1.7-2.5); SODIUM 135 mmol/L (135-144)
[2018-07-05] MEDS: SENNA TAB PO (09:00)
[2018-07-05] MEDS: oxyCODONE (CR) 15 MG TAB [oxyCONTIN] PO (09:00)
[2018-07-05] MEDS: AMLODIPINE 5 MG TAB PO (09:30)
[2018-07-05] MEDS: AMIODARONE 200 MG TAB PO (09:30)
[2018-07-05] MEDS: ISOSORBIDE MONONITRATE(SR)60 MG TAB PO (09:31)
[2018-07-05] MEDS: POLYETHYLENE GLYCOL 17 GM PACKET PO (09:31)
[2018-07-05] MEDS ORDERED: HYDROmorphONE 2 MG TAB PO (12:30)
[2018-07-05] MEDS ORDERED: FUROSEMIDE 20 MG TAB PO (16:00)
== END 2018-07-05 17:50 | disposition home health service (06) | DRG 668 ==
LOC: E/R 06:14 → 6WM 06-21 14:10 → 2NE 10:30
PROC: 3E1K78Z Irrigation of Genitourinary Tract using Irrigating Substance, Via Natural or Artificial Opening (ICD-10-PCS; principal; 2018-06-30 07:26)
PROC: 0TBB8ZZ Excision of Bladder, Via Natural or Artificial Opening Endoscopic (ICD-10-PCS; 2018-06-30 07:26)
PROC: 5A09457 Assistance with Respiratory Ventilation, 24-96 Consecutive Hours, Continuous Positive Airway Pressure (ICD-10-PCS; 2018-06-30 07:26)
PROC: 30233N1 Transfusion of Nonautologous Red Blood Cells into Peripheral Vein, Percutaneous Approach (ICD-10-PCS; 2018-06-30 07:26)
DX: D49.4 Neoplasm of unspecified behavior of bladder (principal); G92 Toxic encephalopathy; T83.29XA Other mechanical complication of graft of urinary organ, initial encounter; N39.0 Urinary tract infection, site not specified; I13.0 Hypertensive heart and chronic kidney disease with heart failure and stage 1 through stage 4 chronic kidney disease, or unspecified chronic kidney disease; N17.9 Acute kidney failure, unspecified; I69.954 Hemiplegia and hemiparesis following unspecified cerebrovascular disease affecting left non-dominant side; N13.8 Other obstructive and reflux uropathy; R47.01 Aphasia; I50.22 Chronic systolic (congestive) heart failure; N32.0 Bladder-neck obstruction; R31.9 Hematuria, unspecified; N18.9 Chronic kidney disease, unspecified; Z95.1 Presence of aortocoronary bypass graft; F01.50 Vascular dementia, unspecified severity, without behavioral disturbance, psychotic disturbance, mood disturbance, and anxiety; N40.1 Benign prostatic hyperplasia with lower urinary tract symptoms; R33.8 Other retention of urine; I48.91 Unspecified atrial fibrillation; Z90.79 Acquired absence of other genital organ(s); I35.0 Nonrheumatic aortic (valve) stenosis; G47.33 Obstructive sleep apnea (adult) (pediatric); Z79.02 Long term (current) use of antithrombotics/antiplatelets; Z87.891 Personal history of nicotine dependence; D64.9 Anemia, unspecified
CPT/HCPCS: 36430; 36600; 71045; 74018; 76775; 76856; 80048; 80053; 80061; 81001; 82803; 83036; 83605; 83735; 83880; 84100; 84153; 84154; 84484; 85025; 85610; 85730; 86850; 86900; 86901; 86920; 87086; 88305; 92610; 93005; 93306; 94660; 96374; 96375; 97110; 97116; 97161; 97530; 99217; 99285-25; G0378

== ENCOUNTER 2018-10-14 18:16 | Inpatient (IN) | payer MEDICARE, OTHER ==
[2018-10-14 18:28] LABS: ADD MAN DIFF? NO
[2018-10-14] MEDS: NITROGLYCERIN 50 MG/D5W (PMX) 250 ML IV (18:34)
[2018-10-14 18:38] LABS: BASOPHIL # 0.1 10^3/ul (0.0-0.1); BASOPHILS % 0.6 % (0.0-2.0); EOSINOPHILS # 0.1 10^3/ul (0.0-0.5); EOSINOPHILS % 1.3 % (0.0-7.0); HEMATOCRIT 37.9 % (42.0-52.0); HEMOGLOBIN 11.7 g/dl (14.0-18.0); LYMPHOCYTES # 1.3 10^3/ul (0.8-2.9); LYMPHOCYTES % 13.7 % (15.0-51.0); MEAN CORPUSCULAR HEMOGLOBIN 28.8 pg (29.0-33.0); MEAN CORPUSCULAR HGB CONC 30.9 g/dl (32.0-37.0); MEAN CORPUSCULAR VOLUME 93.3 fl (82.0-101.0); MEAN PLATELET VOLUME 11.1 fl (7.4-10.4); MONOCYTES % 10.2 % (0.0-11.0); NEUTROPHIL # 6.9 10^3/ul (1.6-7.5); NEUTROPHILS % 73.9 % (39.0-77.0); PLATELET COUNT 191 10^3/UL (140-415); RED BLOOD COUNT 4.06 10^6/ul (4.70-6.10); RED CELL DISTRIBUTION WIDTH 17.3 % (11.5-14.5)
[2018-10-14 18:38] LABS: WHITE BLOOD COUNT 9.3 10^3/ul (4.8-10.8)
[2018-10-14] MEDS: FUROSEMIDE 20 MG INJ IV (18:45)
[2018-10-14] MEDS: ASPIRIN 81 MG TAB PO (18:45)
[2018-10-14 18:49] LABS: INR 1.08; PROTIME 14.1 Sec (11.9-14.9); PT RATIO 1.1
[2018-10-14 18:50] LABS: PARTIAL THROMBOPLASTIN TIME 27.5 Sec (23.0-35.0)
[2018-10-14 19:07] LABS: ALANINE AMINOTRANSFERASE 15 IU/L (13-69); ALBUMIN 3.9 g/dl (3.3-4.9); ALBUMIN/GLOBULIN RATIO 1.14; ALKALINE PHOSPHATASE 104 IU/L (42-121); ANION GAP 9 (5-13); ASPARTATE AMINO TRANSFERASE 22 IU/L (15-46); BILIRUBIN,INDIRECT 0.5 mg/dl (0-1.1); BILIRUBIN,TOTAL 0.5 mg/dl (0.2-1.3); BLOOD UREA NITROGEN 18 mg/dl (7-20); CARBON DIOXIDE 24 mmol/L (21-31); CHLORIDE 104 mmol/L (97-110); GLUCOSE 169 mg/dl (70-220); POTASSIUM 4.6 mmol/L (3.5-5.1); SODIUM 137 mmol/L (135-144); TOTAL PROTEIN 7.3 g/dl (6.1-8.1)
[2018-10-14 19:19] LABS: B-TYPE NATRIURETIC PEPTIDE 3460 PG/ML (0-450); TROPONIN-I 0.016 ng/ml (0.000-0.120)
[2018-10-14 20:50] LABS: AADO2 Arterial 192.6 mmHg (7.0-24.0); Allen Test ACCEPTAB; Arterial Base Excess 0.2 mmol/L (-3.0-3); Arterial Blood Gas Oxygen Sat 99.2 mmHG (95.0-100.0); Arterial COHb 0.4 % (0.0-3.0); Arterial Fraction of Oxyhgb 98.4 % (93.0-99.0); Arterial HCO3 24.2 mmol/L (22.0-26.0); Arterial MetHb 0.4 % (0.0-1.5); Arterial pCO2 36.8 mmhg (35-45); Blood Gas IEPAP 20/10; MODE MASK - BIPAP; Site Left Radial
[2018-10-15 01:23] LABS: CREATINE KINASE 62 IU/L (23-200)
[2018-10-15 01:34] LABS: CK INDEX 3.4; CK-MB 2.08 ng/ml (0.0-2.4); TROPONIN-I 0.037 ng/ml (0.000-0.120)
[2018-10-15] MEDS: LEVOTHYROXINE 150 MCG TAB PO (06:20)
[2018-10-15] MEDS: BUMETANIDE 1 MG TAB PO (06:20)
[2018-10-15 07:22] LABS: CK-MB 1.62 ng/ml (0.0-2.4); TROPONIN-I 0.041 ng/ml (0.000-0.120)
[2018-10-15 07:23] LABS: CK INDEX 2.9; CREATINE KINASE 55 IU/L (23-200)
[2018-10-15] MEDS: SENNA TAB PO ×2 (08:19→21:55)
[2018-10-15] MEDS: LOSARTAN 50 MG TAB PO ×2 (08:20→21:58)
[2018-10-15] MEDS: POTASSIUM CHLORIDE (SR) 8 MEQ CAP PO (08:20)
[2018-10-15] MEDS: ISOSORBIDE DINITRATE 10 MG TAB PO ×2 (08:23→21:59)
[2018-10-15] MEDS: AMIODARONE 200 MG TAB PO (09:00)
[2018-10-15] MEDS: BUMETANIDE 1 MG INJ IV (13:18)
[2018-10-15] MEDS ORDERED: NON-FORMULARY/PATIENT OWN MED (Rosuvastatin Calcium* (Crestor*) 10 MG) PO (21:00)
[2018-10-15] MEDS: TAMSULOSIN (SR) 0.4 MG CAP PO (21:55)
[2018-10-15] MEDS: ATORVASTATIN 40 MG TAB PO (21:55)
[2018-10-15] MEDS: IPRATROPIUM (NEB) 0.5 MG/2.5 ML AMP NEB (22:42)
[2018-10-16] MEDS ORDERED: LEVALBUTEROL (NEB) 0.31 MG/3 ML AMP HHN
[2018-10-16 06:25] LABS: ADD MAN DIFF? NO
[2018-10-16 06:33] LABS: WHITE BLOOD COUNT 7.6 10^3/ul (4.8-10.8)
[2018-10-16 06:34] LABS: BASOPHILS % 0.5 % (0.0-2.0); EOSINOPHILS # 0.1 10^3/ul (0.0-0.5); EOSINOPHILS % 1.7 % (0.0-7.0); HEMATOCRIT 34.3 % (42.0-52.0); HEMOGLOBIN 10.6 g/dl (14.0-18.0); LYMPHOCYTES # 1.1 10^3/ul (0.8-2.9); LYMPHOCYTES % 14.9 % (15.0-51.0); MEAN CORPUSCULAR HEMOGLOBIN 28.8 pg (29.0-33.0); MEAN CORPUSCULAR HGB CONC 30.9 g/dl (32.0-37.0); MEAN CORPUSCULAR VOLUME 93.2 fl (82.0-101.0); MEAN PLATELET VOLUME 11.5 fl (7.4-10.4); MONOCYTE # 0.9 10^3/ul (0.3-0.9); NEUTROPHIL # 5.4 10^3/ul (1.6-7.5); NEUTROPHILS % 70.6 % (39.0-77.0); PLATELET COUNT 185 10^3/UL (140-415); RED BLOOD COUNT 3.68 10^6/ul (4.70-6.10); RED CELL DISTRIBUTION WIDTH 16.7 % (11.5-14.5)
[2018-10-16] MEDS: LEVOTHYROXINE 150 MCG TAB PO (06:43)
[2018-10-16] MEDS: BUMETANIDE 1 MG TAB PO (06:43)
[2018-10-16 06:51] LABS: ANION GAP 7 (5-13); BLOOD UREA NITROGEN 23 mg/dl (7-20); CALCIUM 8.8 mg/dl (8.4-10.2); CARBON DIOXIDE 29 mmol/L (21-31); CHLORIDE 102 mmol/L (97-110); GLUCOSE 112 mg/dl (70-220); POTASSIUM 4.4 mmol/L (3.5-5.1); SODIUM 138 mmol/L (135-144)
[2018-10-16 06:57] LABS: MAGNESIUM 2.2 mg/dl (1.7-2.5)
[2018-10-16 06:59] LABS: PHOSPHORUS 4.1 mg/dl (2.5-4.9)
[2018-10-16] MEDS: SENNA TAB PO ×2 (09:27→21:57)
[2018-10-16] MEDS: ASPIRIN (EC) 81 MG TAB PO (09:27)
[2018-10-16] MEDS: ISOSORBIDE DINITRATE 10 MG TAB PO ×2 (09:27→21:56)
[2018-10-16] MEDS: LOSARTAN 50 MG TAB PO ×2 (09:27→21:57)
[2018-10-16] MEDS: ENOXAPARIN 100 MG/ML SYG SC (09:36)
[2018-10-16] MEDS: POTASSIUM CHLORIDE (SR) 8 MEQ CAP PO (09:38)
[2018-10-16] MEDS: ATORVASTATIN 40 MG TAB PO (21:56)
[2018-10-16] MEDS: TAMSULOSIN (SR) 0.4 MG CAP PO (21:57)
[2018-10-17 06:35] LABS: ANION GAP 8 (5-13); BLOOD UREA NITROGEN 24 mg/dl (7-20); CALCIUM 8.8 mg/dl (8.4-10.2); CARBON DIOXIDE 30 mmol/L (21-31); CHLORIDE 100 mmol/L (97-110); GLUCOSE 112 mg/dl (70-220); SODIUM 138 mmol/L (135-144)
[2018-10-17] MEDS: BUMETANIDE 1 MG TAB PO (06:41)
[2018-10-17] MEDS: LEVOTHYROXINE 150 MCG TAB PO (06:41)
[2018-10-17 06:50] LABS: MAGNESIUM 2.1 mg/dl (1.7-2.5)
[2018-10-17] MEDS: POTASSIUM CHLORIDE (SR) 8 MEQ CAP PO (09:00)
[2018-10-17] MEDS: SENNA TAB PO (09:00)
[2018-10-17] MEDS: LOSARTAN 50 MG TAB PO (09:00)
[2018-10-17] MEDS: ASPIRIN (EC) 81 MG TAB PO (09:01)
[2018-10-17] MEDS: ISOSORBIDE DINITRATE 10 MG TAB PO (09:01)
[2018-10-17] MEDS: ENOXAPARIN 100 MG/ML SYG SC (09:06)
== END 2018-10-17 15:47 | disposition home or self-care (01) | DRG 291 ==
LOC: 6WM 10-15 00:19 → E/R 18:16 → 6WM 19:39
PROC: 4A033R1 Measurement of Arterial Saturation, Peripheral, Percutaneous Approach (ICD-10-PCS; principal; 2018-10-14)
DX: I13.0 Hypertensive heart and chronic kidney disease with heart failure and stage 1 through stage 4 chronic kidney disease, or unspecified chronic kidney disease (principal); I50.23 Acute on chronic systolic (congestive) heart failure; N18.9 Chronic kidney disease, unspecified; J44.9 Chronic obstructive pulmonary disease, unspecified; E78.5 Hyperlipidemia, unspecified; I25.2 Old myocardial infarction; I35.0 Nonrheumatic aortic (valve) stenosis; I25.10 Atherosclerotic heart disease of native coronary artery without angina pectoris; I48.0 Paroxysmal atrial fibrillation; I25.5 Ischemic cardiomyopathy; D49.4 Neoplasm of unspecified behavior of bladder; N40.0 Benign prostatic hyperplasia without lower urinary tract symptoms; I48.2 Chronic atrial fibrillation; D69.6 Thrombocytopenia, unspecified; D64.9 Anemia, unspecified; Z82.49 Family history of ischemic heart disease and other diseases of the circulatory system; Z95.1 Presence of aortocoronary bypass graft; Z87.891 Personal history of nicotine dependence
CPT/HCPCS: 36415; 36600; 71045; 80048; 80053; 82550; 82553; 82803; 83735; 83880; 84100; 84484; 85025; 85610; 85730; 93005; 94660; 94664; 96365; 96375; 99291-25

== ENCOUNTER 2018-12-02 07:16 | Inpatient (IN) | payer MEDICARE, OTHER ==
[2018-12-02 07:28] LABS: ADD MAN DIFF? NO
[2018-12-02 07:30] LABS: WHITE BLOOD COUNT 9.1 10^3/ul (4.8-10.8)
[2018-12-02 07:30] LABS: BASOPHIL # 0.1 10^3/ul (0.0-0.1); BASOPHILS % 0.6 % (0.0-2.0); EOSINOPHILS # 0.1 10^3/ul (0.0-0.5); EOSINOPHILS % 1.1 % (0.0-7.0); HEMOGLOBIN 11.1 g/dl (14.0-18.0); LYMPHOCYTES # 1.2 10^3/ul (0.8-2.9); LYMPHOCYTES % 13.6 % (15.0-51.0); MEAN CORPUSCULAR HEMOGLOBIN 29.3 pg (29.0-33.0); MEAN CORPUSCULAR HGB CONC 31.7 g/dl (32.0-37.0); MEAN CORPUSCULAR VOLUME 92.3 fl (82.0-101.0); MEAN PLATELET VOLUME 11.2 fl (7.4-10.4); MONOCYTE # 0.9 10^3/ul (0.3-0.9); MONOCYTES % 10.3 % (0.0-11.0); NEUTROPHIL # 6.7 10^3/ul (1.6-7.5); NEUTROPHILS % 74.1 % (39.0-77.0); PLATELET COUNT 188 10^3/UL (140-415); RED BLOOD COUNT 3.79 10^6/ul (4.70-6.10); RED CELL DISTRIBUTION WIDTH 16.4 % (11.5-14.5)
[2018-12-02] MEDS: ENALAPRILAT 1.25 MG INJ IV (07:30)
[2018-12-02] MEDS: IPRATROPIUM (NEB) 0.5 MG/2.5 ML AMP INH (07:37)
[2018-12-02] MEDS: ALBUTEROL 0.5% (NEB) 2.5 MG/0.5 ML AMP INH (07:37)
[2018-12-02] MEDS: FUROSEMIDE 40 MG INJ IV (07:40)
[2018-12-02] MEDS: NITROGLYCERIN (SL) 0.4 MG TAB SL (07:40)
[2018-12-02] MEDS: METHYLPREDNISOLONE 125 MG INJ IV (07:46)
[2018-12-02] MEDS: ASPIRIN 81 MG TAB PO (07:46)
[2018-12-02 07:56] LABS: ALANINE AMINOTRANSFERASE 18 IU/L (13-69); ALBUMIN 3.6 g/dl (3.3-4.9); ALKALINE PHOSPHATASE 76 IU/L (42-121); ANION GAP 8 (5-13); ASPARTATE AMINO TRANSFERASE 20 IU/L (15-46); BILIRUBIN,INDIRECT 0.9 mg/dl (0-1.1); BILIRUBIN,TOTAL 0.9 mg/dl (0.2-1.3); BLOOD UREA NITROGEN 17 mg/dl (7-20); CALCIUM 9.2 mg/dl (8.4-10.2); CARBON DIOXIDE 27 mmol/L (21-31); CHLORIDE 104 mmol/L (97-110); GLUCOSE 153 mg/dl (70-220); LIPASE 39 U/L (23-300); POTASSIUM 4.2 mmol/L (3.5-5.1); SODIUM 139 mmol/L (135-144); TOTAL PROTEIN 6.6 g/dl (6.1-8.1)
[2018-12-02 08:04] LABS: B-TYPE NATRIURETIC PEPTIDE 3500 PG/ML (0-450)
[2018-12-02 08:06] LABS: TROPONIN-I 0.013 ng/ml (0.000-0.120)
[2018-12-02] MEDS: LORAZEPAM 2 MG INJ IV (13:59)
[2018-12-02] MEDS ORDERED: ALBUTEROL/IPRATROPIUM (NEB) 3 ML AMP HHN (14:00)
[2018-12-02] MEDS: IOHEXOL 300MG/ML 150 ML BTL (14:06)
[2018-12-02] MEDS: SOD CHLORIDE 0.9% 0 ML (14:06)
[2018-12-02 14:28] LABS: ADD UMIC YES; UR ASCORBIC ACID NEGATIVE (NEGATIVE); UR BACTERIA FEW /HPF (NONE SEEN); UR BILIRUBIN (Dip) NEGATIVE (NEGATIVE); UR BLOOD (Dip) 2+ mg/dL (NEGATIVE); UR BUDDING YEAST FEW /HPF (NONE SEEN); UR CLARITY CLEAR (CLEAR); UR COLOR YELLOW (YELLOW); UR GLUCOSE (Dip) NEGATIVE (NEGATIVE); UR KETONES (Dip) NEGATIVE (NEGATIVE); UR LEUKOCYTE ESTERASE (Dip) 2+ Leu/ul (NEGATIVE); UR MUCUS FEW /HPF (NONE SEEN); UR NITRITE (Dip) NEGATIVE (NEGATIVE); UR RBC 38 /HPF (0-5); UR SPECIFIC GRAVITY (Dip) 1.006 (1.003-1.030); UR TOTAL PROTEIN (Dip) NEGATIVE (NEGATIVE); UR UROBILINOGEN (Dip) NEGATIVE (NEGATIVE); UR WBC 12 /HPF (0-5)
[2018-12-02] MEDS: ALBUTEROL/IPRATROPIUM (NEB) 3 ML AMP HHN ×2 (15:18→19:25)
[2018-12-02 15:21] LABS: CREATINE KINASE 78 IU/L (23-200)
[2018-12-02 15:23] LABS: MAGNESIUM 1.8 mg/dl (1.7-2.5)
[2018-12-02 15:34] LABS: CK INDEX 3.5; CK-MB 2.74 ng/ml (0.0-2.4); TROPONIN-I 0.013 ng/ml (0.000-0.120)
[2018-12-02] MEDS: CEFEPIME 1GM/50 ML (PMX) 50 ML IVPB (16:14)
[2018-12-02] MEDS: hydrALAzine 20 MG INJ IV (16:15)
[2018-12-02] MEDS ORDERED: BUMETANIDE 1 MG INJ IV (18:00)
[2018-12-02] MEDS: BUMETANIDE 3 MG in DEXTROSE 5% 18 ML IV (18:14)
[2018-12-02] MEDS ORDERED: LOSARTAN 50 MG TAB PO (21:00)
[2018-12-02] MEDS: ATORVASTATIN 40 MG TAB PO (21:10)
[2018-12-02] MEDS: ISOSORBIDE DINITRATE 10 MG TAB PO (21:11)
[2018-12-03] MEDS: LORAZEPAM 2 MG INJ IV (03:54)
[2018-12-03] MEDS: BUMETANIDE 1 MG INJ IV ×2 (06:03→17:53)
[2018-12-03] MEDS: LEVOTHYROXINE 150 MCG TAB PO (06:04)
[2018-12-03 08:39] LABS: ADD MAN DIFF? NO
[2018-12-03] MEDS: ASPIRIN (EC) 81 MG TAB PO (08:43)
[2018-12-03] MEDS: ISOSORBIDE DINITRATE 10 MG TAB PO ×2 (08:43→22:09)
[2018-12-03] MEDS: AMIODARONE 200 MG TAB PO (08:44)
[2018-12-03 08:45] LABS: ABNORMAL IP MESSAGE 1; BASOPHILS % 0.1 % (0.0-2.0); HEMATOCRIT 35.2 % (42.0-52.0); HEMOGLOBIN 11.2 g/dl (14.0-18.0); LYMPHOCYTES # 0.6 10^3/ul (0.8-2.9); LYMPHOCYTES % 3.6 % (15.0-51.0); MEAN CORPUSCULAR HGB CONC 31.8 g/dl (32.0-37.0); MEAN CORPUSCULAR VOLUME 91.2 fl (82.0-101.0); MONOCYTE # 0.7 10^3/ul (0.3-0.9); MONOCYTES % 4.5 % (0.0-11.0); NEUTROPHIL # 14.1 10^3/ul (1.6-7.5); NEUTROPHILS % 91.4 % (39.0-77.0); PLATELET COUNT 203 10^3/UL (140-415); POSITIVE DIFF @See below; RED BLOOD COUNT 3.86 10^6/ul (4.70-6.10); RED CELL DISTRIBUTION WIDTH 16.6 % (11.5-14.5)
[2018-12-03 08:45] LABS: WHITE BLOOD COUNT 15.4 10^3/ul (4.8-10.8)
[2018-12-03] MEDS: ALBUTEROL/IPRATROPIUM (NEB) 3 ML AMP HHN ×3 (09:04→19:53)
[2018-12-03 10:00] LABS: ANION GAP 11 (5-13); BLOOD UREA NITROGEN 22 mg/dl (7-20); CALCIUM 9.5 mg/dl (8.4-10.2); CARBON DIOXIDE 29 mmol/L (21-31); CHLORIDE 102 mmol/L (97-110); CREATININE 1.24 mg/dl (0.61-1.24); GLUCOSE 144 mg/dl (70-220); PHOSPHORUS 4.5 mg/dl (2.5-4.9); SODIUM 142 mmol/L (135-144)
[2018-12-03] MEDS: LEVOFLOXACIN 500MG/D5W (PMX) 100 ML IVPB (12:27)
[2018-12-03] MEDS: FLUCONAZOLE 200 MG (PMX) 100 ML IVPB (15:19)
[2018-12-03] MEDS: SOD CHLORIDE 0.9% 100 ML (17:20)
[2018-12-03] MEDS: IODIXANOL LOCM 100 ML BTL (17:20)
[2018-12-03] MEDS: SACUBITRIL/VALSARTAN (24mg-26mg) TABLET PO (21:59)
[2018-12-03] MEDS: ATORVASTATIN 40 MG TAB PO (21:59)
[2018-12-04] MEDS: BUMETANIDE 1 MG INJ IV ×2 (05:58→18:16)
[2018-12-04] MEDS: LEVOTHYROXINE 150 MCG TAB PO (06:01)
[2018-12-04] MEDS: ALBUTEROL/IPRATROPIUM (NEB) 3 ML AMP HHN ×2 (08:26→13:07)
[2018-12-04 08:35] LABS: WHITE BLOOD COUNT 16.1 10^3/ul (4.8-10.8)
[2018-12-04 08:35] LABS: ABNORMAL IP MESSAGE 1; ADD MAN DIFF? NO; BASOPHILS % 0.2 % (0.0-2.0); EOSINOPHILS % 0.1 % (0.0-7.0); HEMATOCRIT 37.1 % (42.0-52.0); HEMOGLOBIN 11.5 g/dl (14.0-18.0); LYMPHOCYTES # 0.9 10^3/ul (0.8-2.9); LYMPHOCYTES % 5.5 % (15.0-51.0); MEAN CORPUSCULAR VOLUME 93.5 fl (82.0-101.0); MEAN PLATELET VOLUME 11.7 fl (7.4-10.4); MONOCYTE # 1.8 10^3/ul (0.3-0.9); NEUTROPHIL # 13.3 10^3/ul (1.6-7.5); NEUTROPHILS % 82.7 % (39.0-77.0); PLATELET COUNT 217 10^3/UL (140-415); POSITIVE DIFF @See below; RED BLOOD COUNT 3.97 10^6/ul (4.70-6.10); RED CELL DISTRIBUTION WIDTH 16.7 % (11.5-14.5)
[2018-12-04 08:53] LABS: ANION GAP 14 (5-13); BLOOD UREA NITROGEN 31 mg/dl (7-20); CALCIUM 9.2 mg/dl (8.4-10.2); CARBON DIOXIDE 32 mmol/L (21-31); CHLORIDE 97 mmol/L (97-110); CREATININE 1.41 mg/dl (0.61-1.24); GLUCOSE 126 mg/dl (70-220); POTASSIUM 3.4 mmol/L (3.5-5.1); SODIUM 143 mmol/L (135-144)
[2018-12-04] MEDS: SACUBITRIL/VALSARTAN (24mg-26mg) TABLET PO ×2 (09:14→20:55)
[2018-12-04] MEDS: ISOSORBIDE DINITRATE 10 MG TAB PO ×2 (09:15→20:55)
[2018-12-04] MEDS: ASPIRIN (EC) 81 MG TAB PO (09:15)
[2018-12-04] MEDS: AMIODARONE 200 MG TAB PO (09:15)
[2018-12-04] MEDS: LORAZEPAM 2 MG INJ IV (09:44)
[2018-12-04] MEDS: LEVOFLOXACIN 500MG/D5W (PMX) 100 ML IVPB (12:02)
[2018-12-04] MEDS: FLUCONAZOLE 200 MG (PMX) 100 ML IVPB (13:46)
[2018-12-04] MEDS: POTASSIUM CHLORIDE 100 ML IVPB ×2 (15:27→18:19)
[2018-12-04] MEDS: ATORVASTATIN 40 MG TAB PO (20:55)
[2018-12-04 22:01] LABS: AADO2 Arterial 83.4 mmHg (7.0-24.0); Arterial Base Excess 4.4 mmol/L (-3.0-3); Arterial Blood Gas Oxygen Sat 47.1 mmHG (95.0-100.0); Arterial COHb 0.5 % (0.0-3.0); Arterial Fraction of Oxyhgb 46.7 % (93.0-99.0); Arterial HCO3 27.2 mmol/L (22.0-26.0); Arterial MetHb 0.3 % (0.0-1.5); Arterial pCO2 34.6 mmhg (35-45); MODE ROOM AIR; Site Right Brachial
[2018-12-05] MEDS: BUMETANIDE 1 MG INJ IV ×2 (06:13→18:39)
[2018-12-05] MEDS: LEVOTHYROXINE 150 MCG TAB PO (06:14)
[2018-12-05 08:10] LABS: ADD MAN DIFF? NO
[2018-12-05 08:23] LABS: WHITE BLOOD COUNT 19.3 10^3/ul (4.8-10.8)
[2018-12-05 08:23] LABS: ABNORMAL IP MESSAGE 1; BASOPHILS % 0.2 % (0.0-2.0); EOSINOPHILS % 0.1 % (0.0-7.0); HEMATOCRIT 35.2 % (42.0-52.0); HEMOGLOBIN 11.1 g/dl (14.0-18.0); LYMPHOCYTES # 1.2 10^3/ul (0.8-2.9); LYMPHOCYTES % 6.4 % (15.0-51.0); MEAN CORPUSCULAR HEMOGLOBIN 29.1 pg (29.0-33.0); MEAN CORPUSCULAR HGB CONC 31.5 g/dl (32.0-37.0); MEAN CORPUSCULAR VOLUME 92.1 fl (82.0-101.0); MEAN PLATELET VOLUME 11.7 fl (7.4-10.4); MONOCYTE # 2.6 10^3/ul (0.3-0.9); MONOCYTES % 13.3 % (0.0-11.0); NEUTROPHIL # 15.3 10^3/ul (1.6-7.5); NEUTROPHILS % 79.3 % (39.0-77.0); PLATELET COUNT 186 10^3/UL (140-415); POSITIVE DIFF @See below; RED BLOOD COUNT 3.82 10^6/ul (4.70-6.10); RED CELL DISTRIBUTION WIDTH 16.9 % (11.5-14.5)
[2018-12-05 08:29] LABS: ANION GAP 8 (5-13); BLOOD UREA NITROGEN 29 mg/dl (7-20); CALCIUM 8.6 mg/dl (8.4-10.2); CARBON DIOXIDE 33 mmol/L (21-31); CHLORIDE 101 mmol/L (97-110); CREATININE 1.36 mg/dl (0.61-1.24); GLUCOSE 116 mg/dl (70-220); POTASSIUM 3.4 mmol/L (3.5-5.1); SODIUM 142 mmol/L (135-144)
[2018-12-05] MEDS: POTASSIUM CHLORIDE (SR) 20 MEQ TAB PO (09:27)
[2018-12-05] MEDS: AMIODARONE 200 MG TAB PO (09:27)
[2018-12-05] MEDS: ISOSORBIDE DINITRATE 10 MG TAB PO ×2 (09:27→20:47)
[2018-12-05] MEDS: SACUBITRIL/VALSARTAN (24mg-26mg) TABLET PO ×2 (09:27→20:47)
[2018-12-05] MEDS: ASPIRIN (EC) 81 MG TAB PO (09:27)
[2018-12-05] MEDS ORDERED: MEROPENEM 1 GM/50ML(PMX) 50 ML IVPB (09:30)
[2018-12-05] MEDS ORDERED: VANCOMYCIN IV PER PHARMACY XX (11:30)
[2018-12-05] MEDS: ERTAPENEM SODIUM 1 GM in SOD CHLORIDE 0.9% 100 ML IVPB (11:58)
[2018-12-05] MEDS: VANCOMYCIN HCL 1.75 GM in SOD CHLORIDE 0.9% 500 ML IVPB (12:50)
[2018-12-05] MEDS: ATORVASTATIN 40 MG TAB PO (20:47)
[2018-12-06 06:30] LABS: ADD MAN DIFF? NO
[2018-12-06] MEDS: LEVOTHYROXINE 150 MCG TAB PO (06:40)
[2018-12-06] MEDS: BUMETANIDE 1 MG INJ IV ×2 (06:40→17:18)
[2018-12-06 06:46] LABS: WHITE BLOOD COUNT 15.2 10^3/ul (4.8-10.8)
[2018-12-06 06:46] LABS: ABNORMAL IP MESSAGE 1; BASOPHILS % 0.3 % (0.0-2.0); EOSINOPHILS # 0.2 10^3/ul (0.0-0.5); EOSINOPHILS % 1.3 % (0.0-7.0); HEMATOCRIT 36.1 % (42.0-52.0); HEMOGLOBIN 11.2 g/dl (14.0-18.0); LYMPHOCYTES # 1.1 10^3/ul (0.8-2.9); LYMPHOCYTES % 7.3 % (15.0-51.0); MEAN CORPUSCULAR VOLUME 93.5 fl (82.0-101.0); MEAN PLATELET VOLUME 11.9 fl (7.4-10.4); MONOCYTE # 1.9 10^3/ul (0.3-0.9); MONOCYTES % 12.2 % (0.0-11.0); NEUTROPHILS % 78.4 % (39.0-77.0); PLATELET COUNT 182 10^3/UL (140-415); POSITIVE DIFF @See below; RED BLOOD COUNT 3.86 10^6/ul (4.70-6.10); RED CELL DISTRIBUTION WIDTH 16.5 % (11.5-14.5)
[2018-12-06 07:31] LABS: ANION GAP 8 (5-13); BLOOD UREA NITROGEN 27 mg/dl (7-20); CALCIUM 8.3 mg/dl (8.4-10.2); CARBON DIOXIDE 32 mmol/L (21-31); CHLORIDE 102 mmol/L (97-110); CREATININE 1.31 mg/dl (0.61-1.24); GLUCOSE 127 mg/dl (70-220); MAGNESIUM 2.1 mg/dl (1.7-2.5); PHOSPHORUS 3.4 mg/dl (2.5-4.9); POTASSIUM 3.7 mmol/L (3.5-5.1); SODIUM 142 mmol/L (135-144)
[2018-12-06] MEDS: SACUBITRIL/VALSARTAN (24mg-26mg) TABLET PO ×2 (09:22→21:02)
[2018-12-06] MEDS: ASPIRIN (EC) 81 MG TAB PO (09:23)
[2018-12-06] MEDS: ISOSORBIDE DINITRATE 10 MG TAB PO ×2 (09:23→21:03)
[2018-12-06] MEDS: AMIODARONE 200 MG TAB PO (09:23)
[2018-12-06] MEDS: ERTAPENEM SODIUM 1 GM in SOD CHLORIDE 0.9% 100 ML IVPB (11:59)
[2018-12-06] MEDS: VANCOMYCIN HCL 1.5 GM in SOD CHLORIDE 0.9% 250 ML IVPB (13:14)
[2018-12-06] MEDS: ATORVASTATIN 40 MG TAB PO (21:02)
[2018-12-07] MEDS: BUMETANIDE 1 MG INJ IV (06:58)
[2018-12-07] MEDS: LEVOTHYROXINE 150 MCG TAB PO (06:58)
[2018-12-07 08:20] LABS: ADD MAN DIFF? NO
[2018-12-07 08:31] LABS: BASOPHILS % 0.3 % (0.0-2.0); EOSINOPHILS # 0.1 10^3/ul (0.0-0.5); EOSINOPHILS % 1.2 % (0.0-7.0); HEMOGLOBIN 11.1 g/dl (14.0-18.0); LYMPHOCYTES % 8.1 % (15.0-51.0); MEAN CORPUSCULAR HEMOGLOBIN 28.7 pg (29.0-33.0); MEAN CORPUSCULAR HGB CONC 30.8 g/dl (32.0-37.0); MEAN PLATELET VOLUME 11.9 fl (7.4-10.4); MONOCYTE # 1.4 10^3/ul (0.3-0.9); NEUTROPHIL # 9.1 10^3/ul (1.6-7.5); NEUTROPHILS % 77.9 % (39.0-77.0); PLATELET COUNT 195 10^3/UL (140-415); RED BLOOD COUNT 3.87 10^6/ul (4.70-6.10); RED CELL DISTRIBUTION WIDTH 16.4 % (11.5-14.5)
[2018-12-07 08:31] LABS: WHITE BLOOD COUNT 11.7 10^3/ul (4.8-10.8)
[2018-12-07 08:43] LABS: ANION GAP 10 (5-13); BLOOD UREA NITROGEN 23 mg/dl (7-20); CALCIUM 8.4 mg/dl (8.4-10.2); CARBON DIOXIDE 29 mmol/L (21-31); CHLORIDE 101 mmol/L (97-110); CREATININE 1.16 mg/dl (0.61-1.24); GLUCOSE 102 mg/dl (70-220); MAGNESIUM 2.2 mg/dl (1.7-2.5); PHOSPHORUS 3.3 mg/dl (2.5-4.9); POTASSIUM 3.6 mmol/L (3.5-5.1); SODIUM 140 mmol/L (135-144)
[2018-12-07] MEDS: SACUBITRIL/VALSARTAN (24mg-26mg) TABLET PO (08:49)
[2018-12-07] MEDS: AMIODARONE 200 MG TAB PO (08:50)
[2018-12-07] MEDS: ASPIRIN (EC) 81 MG TAB PO (08:50)
[2018-12-07] MEDS: ISOSORBIDE DINITRATE 10 MG TAB PO (08:50)
[2018-12-07] MEDS: ERTAPENEM SODIUM 1 GM in SOD CHLORIDE 0.9% 100 ML IVPB (10:51)
[2018-12-07] MEDS: VANCOMYCIN HCL 1.5 GM in SOD CHLORIDE 0.9% 250 ML IVPB (13:21)
[2018-12-07] MEDS ORDERED: LIDOCAINE 1% (MPF) 5 ML VIAL SC (16:30)
[2018-12-07] MEDS ORDERED: BUMETANIDE 1 MG TAB PO (17:00)
== END 2018-12-07 17:33 | disposition home health service (06) | DRG 291 ==
LOC: E/R 07:16 → TEL 08:16
PROC: 5A09357 Assistance with Respiratory Ventilation, Less than 24 Consecutive Hours, Continuous Positive Airway Pressure (ICD-10-PCS; principal; 2018-12-02)
DX: I13.0 Hypertensive heart and chronic kidney disease with heart failure and stage 1 through stage 4 chronic kidney disease, or unspecified chronic kidney disease (principal); J96.01 Acute respiratory failure with hypoxia; I50.43 Acute on chronic combined systolic (congestive) and diastolic (congestive) heart failure; J96.02 Acute respiratory failure with hypercapnia; N39.0 Urinary tract infection, site not specified; J44.1 Chronic obstructive pulmonary disease with (acute) exacerbation; I42.9 Cardiomyopathy, unspecified; I48.0 Paroxysmal atrial fibrillation; C67.9 Malignant neoplasm of bladder, unspecified; B96.20 Unspecified Escherichia coli [E. coli] as the cause of diseases classified elsewhere; I71.2 Thoracic aortic aneurysm, without rupture; Z99.81 Dependence on supplemental oxygen; I35.0 Nonrheumatic aortic (valve) stenosis; I69.920 Aphasia following unspecified cerebrovascular disease; Z95.1 Presence of aortocoronary bypass graft; I25.10 Atherosclerotic heart disease of native coronary artery without angina pectoris; E78.5 Hyperlipidemia, unspecified; E03.9 Hypothyroidism, unspecified; N18.9 Chronic kidney disease, unspecified; N40.1 Benign prostatic hyperplasia with lower urinary tract symptoms; I11.0 Hypertensive heart disease with heart failure; I71.4 Abdominal aortic aneurysm, without rupture; I25.2 Old myocardial infarction; Z87.891 Personal history of nicotine dependence; Z79.82 Long term (current) use of aspirin; Z85.46 Personal history of malignant neoplasm of prostate
CPT/HCPCS: 36415; 36600; 71045; 71260; 76775; 80048; 80053; 81001; 82550; 82553; 82803; 83690; 83735; 83880; 84100; 84443; 84484; 85025; 87040; 87086; 88104; 93005; 94640; 94644; 94660; 94664; 96374; 96375; 97116; 97161; 97167; 97530; 99291-25

== ENCOUNTER 2018-12-22 09:35 | Inpatient (IN) | payer MEDICARE, OTHER ==
[2018-12-22 10:27] LABS: ADD MAN DIFF? NO
[2018-12-22] MEDS: LIDOCAINE 2% JEL.PF.APP 5 ML UROJET SYRINGE MM (10:28)
[2018-12-22 10:30] LABS: WHITE BLOOD COUNT 9.3 10^3/ul (4.8-10.8)
[2018-12-22 10:30] LABS: BASOPHILS % 0.4 % (0.0-2.0); EOSINOPHILS # 0.2 10^3/ul (0.0-0.5); EOSINOPHILS % 1.8 % (0.0-7.0); HEMATOCRIT 35.2 % (42.0-52.0); HEMOGLOBIN 10.8 g/dl (14.0-18.0); MEAN CORPUSCULAR HEMOGLOBIN 28.2 pg (29.0-33.0); MEAN CORPUSCULAR HGB CONC 30.7 g/dl (32.0-37.0); MEAN CORPUSCULAR VOLUME 91.9 fl (82.0-101.0); MEAN PLATELET VOLUME 11.3 fl (7.4-10.4); NEUTROPHILS % 75.4 % (39.0-77.0); PLATELET COUNT 240 10^3/UL (140-415); RED BLOOD COUNT 3.83 10^6/ul (4.70-6.10)
[2018-12-22 10:46] LABS: LACTIC ACID 1.1 mmol/L (0.5-2.0)
[2018-12-22 10:46] LABS: ALANINE AMINOTRANSFERASE 22 IU/L (13-69); ALBUMIN 3.2 g/dl (3.3-4.9); ALKALINE PHOSPHATASE 85 IU/L (42-121); ANION GAP 7 (5-13); ASPARTATE AMINO TRANSFERASE 18 IU/L (15-46); BILIRUBIN,INDIRECT 0.5 mg/dl (0-1.1); BILIRUBIN,TOTAL 0.5 mg/dl (0.2-1.3); BLOOD UREA NITROGEN 18 mg/dl (7-20); CALCIUM 8.8 mg/dl (8.4-10.2); CARBON DIOXIDE 30 mmol/L (21-31); CHLORIDE 106 mmol/L (97-110); CREATININE 1.16 mg/dl (0.61-1.24); GLUCOSE 128 mg/dl (70-220); LIPASE 45 U/L (23-300); POTASSIUM 3.5 mmol/L (3.5-5.1); SODIUM 143 mmol/L (135-144); TOTAL PROTEIN 6.4 g/dl (6.1-8.1)
[2018-12-22 12:19] LABS: INR 1.11; PROTIME 14.4 Sec (11.9-14.9); PT RATIO 1.1
[2018-12-22] MEDS ORDERED: morphine 2 MG INJ (12:29)
[2018-12-22] MEDS: morphine 2 MG INJ IV (12:30)
[2018-12-22 12:41] LABS: ADD UMIC YES; UR ASCORBIC ACID NEGATIVE (NEGATIVE); UR BACTERIA MODERATE /HPF (NONE SEEN); UR BILIRUBIN (Dip) NEGATIVE (NEGATIVE); UR BLOOD (Dip) 3+ mg/dL (NEGATIVE); UR CLARITY CLOUDY (CLEAR); UR COLOR AMBER (YELLOW); UR GLUCOSE (Dip) NEGATIVE (NEGATIVE); UR KETONES (Dip) NEGATIVE (NEGATIVE); UR LEUKOCYTE ESTERASE (Dip) 2+ Leu/ul (NEGATIVE); UR MUCUS FEW /HPF (NONE SEEN); UR NITRITE (Dip) NEGATIVE (NEGATIVE); UR RBC > 182 /HPF (0-5); UR RENAL EPITHELIAL CELL MODERATE /HPF (NONE SEEN); UR SPECIFIC GRAVITY (Dip) 1.018 (1.003-1.030); UR SQUAMOUS EPITHELIAL CELL FEW /HPF (FEW); UR TOTAL PROTEIN (Dip) 2+ mg/dl (NEGATIVE); UR UROBILINOGEN (Dip) NEGATIVE (NEGATIVE); UR WBC > 182 /HPF (0-5)
[2018-12-22 13:17] LABS: TROPONIN-I 0.037 ng/ml (0.000-0.120)
[2018-12-22] MEDS: NITROGLYCERIN 2% 1 GM OINT PKT TD (13:46)
[2018-12-22] MEDS: FUROSEMIDE 40 MG INJ IV (13:46)
[2018-12-22] MEDS ORDERED: NACL 0.9% 3 ML SYG IV (15:00)
[2018-12-22] MEDS ORDERED: ONDANSETRON 4 MG INJ IV (15:00)
[2018-12-22] MEDS ORDERED: LEVALBUTEROL (NEB) 1.25 MG/0.5 ML AMP HHN (15:30)
[2018-12-22 15:51] LABS: B-TYPE NATRIURETIC PEPTIDE 7230 PG/ML (0-450)
[2018-12-22] MEDS: LEVALBUTEROL (NEB) 1.25 MG/0.5 ML AMP HHN ×2 (15:59→20:00)
[2018-12-22] MEDS: BUMETANIDE 1 MG INJ IV (18:34)
[2018-12-22] MEDS: CIPROFLOXACIN 500 MG TAB PO (18:34)
[2018-12-22] MEDS: SACUBITRIL/VALSARTAN (24mg-26mg) TABLET PO (21:00)
[2018-12-22] MEDS: ISOSORBIDE DINITRATE 10 MG TAB PO (21:46)
[2018-12-22] MEDS: ATORVASTATIN 40 MG TAB PO (21:46)
[2018-12-22] MEDS: ACETAMINOPHEN 325 MG TAB PO (21:46)
[2018-12-22] MEDS: FAMOTIDINE 20 MG TAB PO (21:46)
[2018-12-23] MEDS: HYDROCODONE/APAP (5/325) TAB PO (02:06)
[2018-12-23] MEDS: LEVALBUTEROL (NEB) 1.25 MG/0.5 ML AMP HHN ×4 (03:38→21:22)
[2018-12-23 05:58] LABS: ADD MAN DIFF? NO
[2018-12-23] MEDS: LEVOTHYROXINE 150 MCG TAB PO (06:11)
[2018-12-23] MEDS: BUMETANIDE 1 MG INJ IV ×2 (06:11→16:47)
[2018-12-23] MEDS: CIPROFLOXACIN 500 MG TAB PO ×2 (06:11→16:47)
[2018-12-23 06:22] LABS: WHITE BLOOD COUNT 8.7 10^3/ul (4.8-10.8)
[2018-12-23 06:22] LABS: BASOPHILS % 0.5 % (0.0-2.0); EOSINOPHILS # 0.1 10^3/ul (0.0-0.5); EOSINOPHILS % 1.3 % (0.0-7.0); HEMATOCRIT 32.7 % (42.0-52.0); HEMOGLOBIN 10.3 g/dl (14.0-18.0); LYMPHOCYTES # 1.2 10^3/ul (0.8-2.9); LYMPHOCYTES % 13.3 % (15.0-51.0); MEAN CORPUSCULAR HEMOGLOBIN 28.4 pg (29.0-33.0); MEAN CORPUSCULAR HGB CONC 31.5 g/dl (32.0-37.0); MEAN CORPUSCULAR VOLUME 90.1 fl (82.0-101.0); MEAN PLATELET VOLUME 11.9 fl (7.4-10.4); MONOCYTE # 1.2 10^3/ul (0.3-0.9); MONOCYTES % 13.2 % (0.0-11.0); NEUTROPHIL # 6.3 10^3/ul (1.6-7.5); NEUTROPHILS % 71.4 % (39.0-77.0); PLATELET COUNT 212 10^3/UL (140-415); RED BLOOD COUNT 3.63 10^6/ul (4.70-6.10)
[2018-12-23 06:46] LABS: ALANINE AMINOTRANSFERASE 22 IU/L (13-69); ALBUMIN/GLOBULIN RATIO 1.03; ALKALINE PHOSPHATASE 84 IU/L (42-121); ANION GAP 10 (5-13); ASPARTATE AMINO TRANSFERASE 19 IU/L (15-46); BILIRUBIN,INDIRECT 0.6 mg/dl (0-1.1); BILIRUBIN,TOTAL 0.6 mg/dl (0.2-1.3); BLOOD UREA NITROGEN 19 mg/dl (7-20); CALCIUM 8.5 mg/dl (8.4-10.2); CARBON DIOXIDE 29 mmol/L (21-31); CHLORIDE 105 mmol/L (97-110); CHOL/HDL RATIO 4.1 RATIO; CHOLESTEROL 124 mg/dl (100-200); CREATININE 1.23 mg/dl (0.61-1.24); GLUCOSE 95 mg/dl (70-220); HDL CHOLESTEROL 30 mg/dl (31-75); LDL CHOLESTEROL,CALCULATED 78 mg/dl; MAGNESIUM 1.8 mg/dl (1.7-2.5); PHOSPHORUS 3.6 mg/dl (2.5-4.9); POTASSIUM 3.4 mmol/L (3.5-5.1); SODIUM 144 mmol/L (135-144); TOTAL PROTEIN 5.9 g/dl (6.1-8.1); TRIGLYCERIDES 80 mg/dl (0-149)
[2018-12-23 07:08] LABS: HEMOGLOBIN A1C 5.9 % (0-5.9)
[2018-12-23] MEDS: ACETAMINOPHEN 325 MG TAB PO ×2 (08:52→16:05)
[2018-12-23] MEDS: FAMOTIDINE 20 MG TAB PO ×2 (08:52→21:03)
[2018-12-23] MEDS: AMIODARONE 200 MG TAB PO (08:53)
[2018-12-23] MEDS: ISOSORBIDE DINITRATE 10 MG TAB PO ×2 (08:53→21:04)
[2018-12-23] MEDS: SACUBITRIL/VALSARTAN (24mg-26mg) TABLET PO ×2 (08:53→21:03)
[2018-12-23] MEDS: POTASSIUM CHLORIDE 20 MEQ POWDER FOR ORAL SOLN PO (13:15)
[2018-12-23] MEDS: MAGNESIUM SULFATE 1 GM/D5W 100 ML IVPB (14:27)
[2018-12-23] MEDS: ATORVASTATIN 40 MG TAB PO (21:03)
[2018-12-24] MEDS: LEVALBUTEROL (NEB) 1.25 MG/0.5 ML AMP HHN ×4 (02:16→20:08)
[2018-12-24] MEDS: CIPROFLOXACIN 500 MG TAB PO (06:05)
[2018-12-24] MEDS: BUMETANIDE 1 MG TAB PO (06:05)
[2018-12-24] MEDS: LEVOTHYROXINE 150 MCG TAB PO (06:05)
[2018-12-24 06:30] LABS: ADD MAN DIFF? NO
[2018-12-24 06:33] LABS: WHITE BLOOD COUNT 9.5 10^3/ul (4.8-10.8)
[2018-12-24 06:33] LABS: BASOPHILS % 0.4 % (0.0-2.0); EOSINOPHILS # 0.1 10^3/ul (0.0-0.5); EOSINOPHILS % 1.3 % (0.0-7.0); HEMATOCRIT 35.7 % (42.0-52.0); HEMOGLOBIN 11.3 g/dl (14.0-18.0); LYMPHOCYTES # 0.9 10^3/ul (0.8-2.9); MEAN CORPUSCULAR HEMOGLOBIN 28.6 pg (29.0-33.0); MEAN CORPUSCULAR HGB CONC 31.7 g/dl (32.0-37.0); MEAN CORPUSCULAR VOLUME 90.4 fl (82.0-101.0); MEAN PLATELET VOLUME 11.6 fl (7.4-10.4); MONOCYTE # 1.1 10^3/ul (0.3-0.9); MONOCYTES % 11.5 % (0.0-11.0); NEUTROPHIL # 7.4 10^3/ul (1.6-7.5); NEUTROPHILS % 77.4 % (39.0-77.0); PLATELET COUNT 222 10^3/UL (140-415); RED BLOOD COUNT 3.95 10^6/ul (4.70-6.10); RED CELL DISTRIBUTION WIDTH 16.1 % (11.5-14.5)
[2018-12-24 06:52] LABS: ANION GAP 12 (5-13); BLOOD UREA NITROGEN 21 mg/dl (7-20); CALCIUM 8.9 mg/dl (8.4-10.2); CARBON DIOXIDE 30 mmol/L (21-31); CHLORIDE 103 mmol/L (97-110); CREATININE 1.28 mg/dl (0.61-1.24); GLUCOSE 108 mg/dl (70-220); POTASSIUM 3.5 mmol/L (3.5-5.1); SODIUM 145 mmol/L (135-144)
[2018-12-24] MEDS: ACETAMINOPHEN 325 MG TAB PO (07:30)
[2018-12-24] MEDS: morphine 2 MG INJ IV (07:54)
[2018-12-24] MEDS: SACUBITRIL/VALSARTAN (24mg-26mg) TABLET PO ×2 (08:08→20:40)
[2018-12-24] MEDS: FAMOTIDINE 20 MG TAB PO ×2 (08:08→20:39)
[2018-12-24] MEDS: AMIODARONE 200 MG TAB PO (08:08)
[2018-12-24] MEDS: DOCUSATE SODIUM 100 MG CAP PO (08:08)
[2018-12-24] MEDS: ISOSORBIDE DINITRATE 10 MG TAB PO ×2 (08:09→20:40)
[2018-12-24] MEDS: MEROPENEM 1 GM/50ML(PMX) 50 ML IVPB ×2 (12:11→20:40)
[2018-12-24] MEDS ORDERED: MIDAZOLAM 1 MG/ML 2 ML INJ IV (14:00)
[2018-12-24] MEDS ORDERED: FENTAnyl 50 MCG/ML VIAL IV (14:00)
[2018-12-24] MEDS ORDERED: DIPHENHYDRAMINE 50 MG INJ IV (14:00)
[2018-12-24] MEDS ORDERED: ALBUMIN HUMAN 5% 250 ML IV (14:00)
[2018-12-24] MEDS ORDERED: HYDROmorphONE 1 MG/5 ML IV SYRINGE IV ×2 (14:00)
[2018-12-24] MEDS ORDERED: hydrALAzine 20 MG INJ IV (14:00)
[2018-12-24] MEDS ORDERED: ONDANSETRON 4 MG INJ IV (14:00)
[2018-12-24] MEDS ORDERED: LEVALBUTEROL (NEB) 1.25 MG/0.5 ML AMP HHN (14:00)
[2018-12-24] MEDS ORDERED: IPRATROPIUM (NEB) 0.5 MG/2.5 ML AMP HHN (14:00)
[2018-12-24] MEDS: BUMETANIDE 1 MG INJ IV (18:17)
[2018-12-24] MEDS: ATORVASTATIN 40 MG TAB PO (20:40)
[2018-12-25] MEDS: LEVALBUTEROL (NEB) 1.25 MG/0.5 ML AMP HHN ×4 (01:43→20:41)
[2018-12-25] MEDS: morphine 2 MG INJ IV (02:33)
[2018-12-25] MEDS: BUMETANIDE 1 MG INJ IV ×2 (06:03→17:43)
[2018-12-25] MEDS: LEVOTHYROXINE 150 MCG TAB PO (06:03)
[2018-12-25 06:11] LABS: ADD MAN DIFF? NO
[2018-12-25 06:13] LABS: BASOPHIL # 0.1 10^3/ul (0.0-0.1); BASOPHILS % 0.8 % (0.0-2.0); EOSINOPHILS # 0.3 10^3/ul (0.0-0.5); EOSINOPHILS % 3.9 % (0.0-7.0); HEMATOCRIT 34.5 % (42.0-52.0); HEMOGLOBIN 10.7 g/dl (14.0-18.0); LYMPHOCYTES # 0.9 10^3/ul (0.8-2.9); LYMPHOCYTES % 11.8 % (15.0-51.0); MEAN CORPUSCULAR VOLUME 90.3 fl (82.0-101.0); MEAN PLATELET VOLUME 11.6 fl (7.4-10.4); MONOCYTE # 0.9 10^3/ul (0.3-0.9); NEUTROPHIL # 5.4 10^3/ul (1.6-7.5); NEUTROPHILS % 71.1 % (39.0-77.0); PLATELET COUNT 203 10^3/UL (140-415); RED BLOOD COUNT 3.82 10^6/ul (4.70-6.10); RED CELL DISTRIBUTION WIDTH 16.2 % (11.5-14.5)
[2018-12-25 06:13] LABS: WHITE BLOOD COUNT 7.7 10^3/ul (4.8-10.8)
[2018-12-25 06:34] LABS: MAGNESIUM 1.9 mg/dl (1.7-2.5)
[2018-12-25 06:40] LABS: ANION GAP 8 (5-13); BLOOD UREA NITROGEN 21 mg/dl (7-20); CALCIUM 8.6 mg/dl (8.4-10.2); CARBON DIOXIDE 33 mmol/L (21-31); CHLORIDE 101 mmol/L (97-110); CREATININE 1.42 mg/dl (0.61-1.24); GLUCOSE 105 mg/dl (70-220); POTASSIUM 3.4 mmol/L (3.5-5.1); SODIUM 142 mmol/L (135-144)
[2018-12-25] MEDS: ISOSORBIDE DINITRATE 10 MG TAB PO ×2 (08:58→20:31)
[2018-12-25] MEDS: MEROPENEM 1 GM/50ML(PMX) 50 ML IVPB ×2 (08:58→20:33)
[2018-12-25] MEDS: SACUBITRIL/VALSARTAN (24mg-26mg) TABLET PO ×2 (08:58→20:33)
[2018-12-25] MEDS: FAMOTIDINE 20 MG TAB PO ×2 (08:58→20:28)
[2018-12-25] MEDS: POTASSIUM CHLORIDE 20 MEQ POWDER FOR ORAL SOLN PO (13:11)
[2018-12-25] MEDS: LACTULOSE 30ML CUP PO (13:11)
[2018-12-25] MEDS: ATORVASTATIN 40 MG TAB PO (20:28)
[2018-12-25] MEDS: ACETAMINOPHEN 325 MG TAB PO (20:47)
[2018-12-26] MEDS: LEVALBUTEROL (NEB) 1.25 MG/0.5 ML AMP HHN ×4 (01:35→20:01)
[2018-12-26] MEDS: morphine 2 MG INJ IV (02:05)
[2018-12-26] MEDS: LEVOTHYROXINE 150 MCG TAB PO (06:06)
[2018-12-26] MEDS: BUMETANIDE 1 MG INJ IV ×2 (06:06→18:00)
[2018-12-26 06:43] LABS: ALANINE AMINOTRANSFERASE 20 IU/L (13-69); ALBUMIN 3.1 g/dl (3.3-4.9); ALKALINE PHOSPHATASE 89 IU/L (42-121); ANION GAP 7 (5-13); ASPARTATE AMINO TRANSFERASE 24 IU/L (15-46); BILIRUBIN,INDIRECT 0.7 mg/dl (0-1.1); BILIRUBIN,TOTAL 0.7 mg/dl (0.2-1.3); BLOOD UREA NITROGEN 21 mg/dl (7-20); CALCIUM 8.7 mg/dl (8.4-10.2); CARBON DIOXIDE 30 mmol/L (21-31); CHLORIDE 104 mmol/L (97-110); CREATININE 1.45 mg/dl (0.61-1.24); GLUCOSE 105 mg/dl (70-220); MAGNESIUM 2.1 mg/dl (1.7-2.5); POTASSIUM 3.7 mmol/L (3.5-5.1); SODIUM 141 mmol/L (135-144); TOTAL PROTEIN 6.2 g/dl (6.1-8.1)
[2018-12-26 06:57] LABS: DIGOXIN < 0.4 ng/ml (1.0-2.0)
[2018-12-26] MEDS: SACUBITRIL/VALSARTAN (24mg-26mg) TABLET PO ×2 (09:23→21:02)
[2018-12-26] MEDS: MEROPENEM 1 GM/50ML(PMX) 50 ML IVPB ×2 (09:23→21:02)
[2018-12-26] MEDS: FAMOTIDINE 20 MG TAB PO ×2 (09:23→21:02)
[2018-12-26] MEDS: ISOSORBIDE DINITRATE 10 MG TAB PO ×2 (09:24→21:03)
[2018-12-26] MEDS: SPIRONOLACTONE 25 MG TAB PO (16:11)
[2018-12-26] MEDS: ATORVASTATIN 40 MG TAB PO (21:03)
[2018-12-26] MEDS: ACETAMINOPHEN 325 MG TAB PO (21:56)
[2018-12-27] MEDS: LEVALBUTEROL (NEB) 1.25 MG/0.5 ML AMP HHN ×4 (01:25→19:31)
[2018-12-27] MEDS: BUMETANIDE 1 MG INJ IV (06:12)
[2018-12-27] MEDS: LEVOTHYROXINE 150 MCG TAB PO (06:12)
[2018-12-27 07:55] LABS: ADD MAN DIFF? NO
[2018-12-27 08:02] LABS: WHITE BLOOD COUNT 8.3 10^3/ul (4.8-10.8)
[2018-12-27 08:02] LABS: BASOPHILS % 0.5 % (0.0-2.0); EOSINOPHILS # 0.4 10^3/ul (0.0-0.5); EOSINOPHILS % 4.9 % (0.0-7.0); HEMATOCRIT 37.9 % (42.0-52.0); HEMOGLOBIN 11.8 g/dl (14.0-18.0); LYMPHOCYTES # 1.2 10^3/ul (0.8-2.9); LYMPHOCYTES % 14.1 % (15.0-51.0); MEAN CORPUSCULAR HEMOGLOBIN 28.1 pg (29.0-33.0); MEAN CORPUSCULAR HGB CONC 31.1 g/dl (32.0-37.0); MEAN CORPUSCULAR VOLUME 90.2 fl (82.0-101.0); MEAN PLATELET VOLUME 11.4 fl (7.4-10.4); MONOCYTES % 11.8 % (0.0-11.0); NEUTROPHIL # 5.7 10^3/ul (1.6-7.5); NEUTROPHILS % 68.6 % (39.0-77.0); PLATELET COUNT 201 10^3/UL (140-415); RED CELL DISTRIBUTION WIDTH 16.2 % (11.5-14.5)
[2018-12-27 08:22] LABS: INR 1.13; PROTIME 14.6 Sec (11.9-14.9); PT RATIO 1.1
[2018-12-27 08:35] LABS: ALANINE AMINOTRANSFERASE 23 IU/L (13-69); ALBUMIN 3.1 g/dl (3.3-4.9); ALBUMIN/GLOBULIN RATIO 0.96; ALKALINE PHOSPHATASE 88 IU/L (42-121); ANION GAP 9 (5-13); ASPARTATE AMINO TRANSFERASE 26 IU/L (15-46); BILIRUBIN,INDIRECT 0.4 mg/dl (0-1.1); BILIRUBIN,TOTAL 0.4 mg/dl (0.2-1.3); BLOOD UREA NITROGEN 26 mg/dl (7-20); CALCIUM 8.6 mg/dl (8.4-10.2); CARBON DIOXIDE 30 mmol/L (21-31); CHLORIDE 103 mmol/L (97-110); CREATININE 1.59 mg/dl (0.61-1.24); GLUCOSE 99 mg/dl (70-220); POTASSIUM 3.5 mmol/L (3.5-5.1); SODIUM 142 mmol/L (135-144); TOTAL PROTEIN 6.3 g/dl (6.1-8.1)
[2018-12-27] MEDS: SACUBITRIL/VALSARTAN (24mg-26mg) TABLET PO ×2 (08:53→21:11)
[2018-12-27] MEDS: MEROPENEM 1 GM/50ML(PMX) 50 ML IVPB ×2 (08:53→21:11)
[2018-12-27] MEDS: FAMOTIDINE 20 MG TAB PO ×2 (08:54→21:10)
[2018-12-27] MEDS: ISOSORBIDE DINITRATE 10 MG TAB PO ×2 (08:54→21:10)
[2018-12-27] MEDS: SPIRONOLACTONE 25 MG TAB PO (08:54)
[2018-12-27] MEDS: POTASSIUM CHLORIDE (SR) 10 MEQ TAB PO (13:32)
[2018-12-27] MEDS: LACTATED RINGER'S 1,000 ML IV (18:09)
[2018-12-27] MEDS: BUMETANIDE 1 MG TAB PO (18:10)
[2018-12-27] MEDS: ATORVASTATIN 40 MG TAB PO (21:11)
[2018-12-27] MEDS: morphine 2 MG INJ IV (22:35)
[2018-12-28] MEDS: LEVALBUTEROL (NEB) 1.25 MG/0.5 ML AMP HHN ×4 (01:56→20:00)
[2018-12-28] MEDS: BUMETANIDE 1 MG TAB PO ×2 (05:50→18:00)
[2018-12-28] MEDS: LEVOTHYROXINE 150 MCG TAB PO (06:01)
[2018-12-28] MEDS: MEROPENEM 1 GM/50ML(PMX) 50 ML IVPB ×2 (08:46→22:25)
[2018-12-28] MEDS: FAMOTIDINE 20 MG TAB PO ×2 (08:46→21:00)
[2018-12-28] MEDS: SACUBITRIL/VALSARTAN (24mg-26mg) TABLET PO ×2 (08:46→21:00)
[2018-12-28] MEDS: ISOSORBIDE DINITRATE 10 MG TAB PO ×2 (08:46→21:00)
[2018-12-28] MEDS: SPIRONOLACTONE 25 MG TAB PO (08:47)
[2018-12-28] MEDS: LACTATED RINGER'S 1,000 ML IV (14:00)
[2018-12-28] MEDS ORDERED: FENTAnyl 50 MCG/ML VIAL ×2 (17:46→19:37)
[2018-12-28] MEDS ORDERED: MIDAZOLAM 1 MG/ML 2 ML INJ (17:46)
[2018-12-28] MEDS ORDERED: PHENYLephrine (100 MCG/ML) 10ML SYG (17:48)
[2018-12-28] MEDS ORDERED: INDIGOTINDISULFONATE 0.8% 5 ML INJ (18:52)
[2018-12-28] MEDS ORDERED: LIDOCAINE 2% (SDV) 5 ML INJ (20:34)
[2018-12-28] MEDS ORDERED: ROCURONIUM 50 MG INJ (20:34)
[2018-12-28] MEDS ORDERED: ONDANSETRON 4 MG INJ (20:34)
[2018-12-28] MEDS ORDERED: ETOMIDATE 20 MG INJ (20:34)
[2018-12-28] MEDS: ATORVASTATIN 40 MG TAB PO (21:00)
[2018-12-28] MEDS: morphine 2 MG INJ IV (21:20)
[2018-12-28] MEDS: HALOPERIDOL 5 MG INJ IM (21:30)
[2018-12-29] MEDS: morphine 2 MG INJ IV ×4 (01:21→20:02)
[2018-12-29] MEDS: LEVALBUTEROL (NEB) 1.25 MG/0.5 ML AMP HHN ×4 (02:09→19:49)
[2018-12-29 04:59] LABS: ADD MAN DIFF? NO
[2018-12-29 05:02] LABS: BASOPHILS % 0.4 % (0.0-2.0); EOSINOPHILS # 0.2 10^3/ul (0.0-0.5); EOSINOPHILS % 1.8 % (0.0-7.0); HEMOGLOBIN 11.7 g/dl (14.0-18.0); LYMPHOCYTES # 1.1 10^3/ul (0.8-2.9); LYMPHOCYTES % 10.2 % (15.0-51.0); MEAN CORPUSCULAR HEMOGLOBIN 27.9 pg (29.0-33.0); MEAN CORPUSCULAR HGB CONC 30.8 g/dl (32.0-37.0); MEAN CORPUSCULAR VOLUME 90.5 fl (82.0-101.0); MONOCYTE # 1.4 10^3/ul (0.3-0.9); MONOCYTES % 13.9 % (0.0-11.0); NEUTROPHIL # 7.6 10^3/ul (1.6-7.5); NEUTROPHILS % 73.3 % (39.0-77.0); PLATELET COUNT 173 10^3/UL (140-415); RED CELL DISTRIBUTION WIDTH 15.9 % (11.5-14.5)
[2018-12-29 05:02] LABS: WHITE BLOOD COUNT 10.3 10^3/ul (4.8-10.8)
[2018-12-29 05:25] LABS: ANION GAP 8 (5-13); BLOOD UREA NITROGEN 24 mg/dl (7-20); CALCIUM 8.7 mg/dl (8.4-10.2); CARBON DIOXIDE 31 mmol/L (21-31); CHLORIDE 103 mmol/L (97-110); CREATININE 1.46 mg/dl (0.61-1.24); GLUCOSE 103 mg/dl (70-220); POTASSIUM 4.3 mmol/L (3.5-5.1); SODIUM 142 mmol/L (135-144)
[2018-12-29] MEDS: BUMETANIDE 1 MG TAB PO ×2 (06:00→17:22)
[2018-12-29] MEDS: LEVOTHYROXINE 150 MCG TAB PO (06:11)
[2018-12-29] MEDS: SACUBITRIL/VALSARTAN (24mg-26mg) TABLET PO ×2 (08:58→20:49)
[2018-12-29] MEDS: SPIRONOLACTONE 25 MG TAB PO (08:58)
[2018-12-29] MEDS: FAMOTIDINE 20 MG TAB PO ×2 (08:58→20:50)
[2018-12-29] MEDS: MEROPENEM 1 GM/50ML(PMX) 50 ML IVPB ×2 (08:58→20:49)
[2018-12-29] MEDS: LACTATED RINGER'S 1,000 ML IV (08:59)
[2018-12-29] MEDS: ISOSORBIDE DINITRATE 10 MG TAB PO ×2 (09:21→20:50)
[2018-12-29] MEDS: ATORVASTATIN 40 MG TAB PO (20:50)
[2018-12-30] MEDS: morphine 2 MG INJ IV ×7 (00:18→23:07)
[2018-12-30] MEDS: LEVALBUTEROL (NEB) 1.25 MG/0.5 ML AMP HHN ×4 (02:04→21:25)
[2018-12-30] MEDS: DOCUSATE SODIUM 100 MG CAP PO (02:25)
[2018-12-30 05:15] LABS: ADD MAN DIFF? NO
[2018-12-30 05:23] LABS: WHITE BLOOD COUNT 10.1 10^3/ul (4.8-10.8)
[2018-12-30 05:23] LABS: BASOPHIL # 0.1 10^3/ul (0.0-0.1); BASOPHILS % 0.5 % (0.0-2.0); EOSINOPHILS # 0.5 10^3/ul (0.0-0.5); EOSINOPHILS % 4.4 % (0.0-7.0); HEMATOCRIT 35.7 % (42.0-52.0); HEMOGLOBIN 11.2 g/dl (14.0-18.0); LYMPHOCYTES # 1.2 10^3/ul (0.8-2.9); LYMPHOCYTES % 11.4 % (15.0-51.0); MEAN CORPUSCULAR HEMOGLOBIN 28.6 pg (29.0-33.0); MEAN CORPUSCULAR HGB CONC 31.4 g/dl (32.0-37.0); MEAN CORPUSCULAR VOLUME 91.3 fl (82.0-101.0); MEAN PLATELET VOLUME 11.6 fl (7.4-10.4); MONOCYTE # 1.4 10^3/ul (0.3-0.9); MONOCYTES % 13.4 % (0.0-11.0); NEUTROPHIL # 7.1 10^3/ul (1.6-7.5); NEUTROPHILS % 69.7 % (39.0-77.0); PLATELET COUNT 166 10^3/UL (140-415); RED BLOOD COUNT 3.91 10^6/ul (4.70-6.10); RED CELL DISTRIBUTION WIDTH 15.9 % (11.5-14.5)
[2018-12-30] MEDS: BUMETANIDE 1 MG TAB PO ×2 (06:29→17:40)
[2018-12-30] MEDS: LEVOTHYROXINE 150 MCG TAB PO (06:31)
[2018-12-30 06:32] LABS: ANION GAP 10 (5-13); BLOOD UREA NITROGEN 27 mg/dl (7-20); CALCIUM 8.5 mg/dl (8.4-10.2); CARBON DIOXIDE 29 mmol/L (21-31); CHLORIDE 100 mmol/L (97-110); CREATININE 1.34 mg/dl (0.61-1.24); GLUCOSE 116 mg/dl (70-220); MAGNESIUM 1.8 mg/dl (1.7-2.5); POTASSIUM 4.2 mmol/L (3.5-5.1); SODIUM 139 mmol/L (135-144)
[2018-12-30] MEDS: SACUBITRIL/VALSARTAN (24mg-26mg) TABLET PO ×2 (09:39→21:02)
[2018-12-30] MEDS: FAMOTIDINE 20 MG TAB PO ×2 (09:39→21:01)
[2018-12-30] MEDS: SPIRONOLACTONE 25 MG TAB PO (09:39)
[2018-12-30] MEDS: ISOSORBIDE DINITRATE 10 MG TAB PO ×2 (09:40→21:06)
[2018-12-30] MEDS: MEROPENEM 1 GM/50ML(PMX) 50 ML IVPB ×2 (09:42→21:01)
[2018-12-30] MEDS: BISACODYL (EC) 5 MG TAB PO (15:48)
[2018-12-30] MEDS: ATORVASTATIN 40 MG TAB PO (21:01)
[2018-12-30] MEDS: ACETAMINOPHEN 325 MG TAB PO (21:07)
[2018-12-31] MEDS: LEVALBUTEROL (NEB) 1.25 MG/0.5 ML AMP HHN ×4 (02:31→19:18)
[2018-12-31] MEDS: morphine 2 MG INJ IV ×3 (06:01→22:43)
[2018-12-31 06:24] LABS: ADD MAN DIFF? NO
[2018-12-31 06:33] LABS: WHITE BLOOD COUNT 8.8 10^3/ul (4.8-10.8)
[2018-12-31 06:33] LABS: BASOPHIL # 0.1 10^3/ul (0.0-0.1); BASOPHILS % 0.6 % (0.0-2.0); EOSINOPHILS # 0.6 10^3/ul (0.0-0.5); EOSINOPHILS % 6.5 % (0.0-7.0); HEMATOCRIT 33.8 % (42.0-52.0); HEMOGLOBIN 10.6 g/dl (14.0-18.0); LYMPHOCYTES # 1.1 10^3/ul (0.8-2.9); MEAN CORPUSCULAR HGB CONC 31.4 g/dl (32.0-37.0); MEAN CORPUSCULAR VOLUME 89.2 fl (82.0-101.0); MEAN PLATELET VOLUME 11.5 fl (7.4-10.4); MONOCYTES % 11.8 % (0.0-11.0); NEUTROPHIL # 5.9 10^3/ul (1.6-7.5); NEUTROPHILS % 67.8 % (39.0-77.0); PLATELET COUNT 166 10^3/UL (140-415); RED BLOOD COUNT 3.79 10^6/ul (4.70-6.10); RED CELL DISTRIBUTION WIDTH 15.4 % (11.5-14.5)
[2018-12-31 06:59] LABS: ANION GAP 5 (5-13); BLOOD UREA NITROGEN 23 mg/dl (7-20); CALCIUM 8.5 mg/dl (8.4-10.2); CARBON DIOXIDE 32 mmol/L (21-31); CHLORIDE 102 mmol/L (97-110); CREATININE 1.21 mg/dl (0.61-1.24); GLUCOSE 105 mg/dl (70-220); SODIUM 139 mmol/L (135-144)
[2018-12-31] MEDS: BUMETANIDE 1 MG TAB PO ×2 (07:13→17:30)
[2018-12-31] MEDS: LEVOTHYROXINE 150 MCG TAB PO (07:13)
[2018-12-31] MEDS: SPIRONOLACTONE 25 MG TAB PO (08:30)
[2018-12-31] MEDS: SACUBITRIL/VALSARTAN (24mg-26mg) TABLET PO ×2 (08:30→22:42)
[2018-12-31] MEDS: ISOSORBIDE DINITRATE 10 MG TAB PO ×2 (08:30→22:42)
[2018-12-31] MEDS: MEROPENEM 1 GM/50ML(PMX) 50 ML IVPB ×2 (08:30→22:39)
[2018-12-31] MEDS: FAMOTIDINE 20 MG TAB PO ×2 (08:30→22:42)
[2018-12-31] MEDS: DOCUSATE SODIUM 100 MG CAP PO (19:15)
[2018-12-31] MEDS: ATORVASTATIN 40 MG TAB PO (22:42)
[2019-01-01] MEDS: LEVALBUTEROL (NEB) 1.25 MG/0.5 ML AMP HHN ×4 (01:10→19:42)
[2019-01-01] MEDS: morphine 2 MG INJ IV ×2 (04:30→23:53)
[2019-01-01] MEDS: BUMETANIDE 1 MG TAB PO ×2 (05:49→18:26)
[2019-01-01] MEDS: LEVOTHYROXINE 150 MCG TAB PO (06:01)
[2019-01-01] MEDS: SPIRONOLACTONE 25 MG TAB PO (09:55)
[2019-01-01] MEDS: MEROPENEM 1 GM/50ML(PMX) 50 ML IVPB ×2 (09:55→21:10)
[2019-01-01] MEDS: FAMOTIDINE 20 MG TAB PO ×2 (09:55→21:10)
[2019-01-01] MEDS: ISOSORBIDE DINITRATE 10 MG TAB PO ×2 (09:56→21:10)
[2019-01-01] MEDS: SACUBITRIL/VALSARTAN (24mg-26mg) TABLET PO ×2 (09:56→21:10)
[2019-01-01] MEDS: ATORVASTATIN 40 MG TAB PO (21:10)
[2019-01-02] MEDS: LEVALBUTEROL (NEB) 1.25 MG/0.5 ML AMP HHN ×4 (01:00→20:26)
[2019-01-02] MEDS: ACETAMINOPHEN 325 MG TAB PO (03:40)
[2019-01-02] MEDS: BUMETANIDE 1 MG TAB PO ×2 (05:57→17:15)
[2019-01-02] MEDS: LEVOTHYROXINE 150 MCG TAB PO (06:01)
[2019-01-02] MEDS: MEROPENEM 1 GM/50ML(PMX) 50 ML IVPB ×2 (08:27→20:10)
[2019-01-02] MEDS: SPIRONOLACTONE 25 MG TAB PO (08:27)
[2019-01-02] MEDS: SACUBITRIL/VALSARTAN (24mg-26mg) TABLET PO ×2 (08:27→20:18)
[2019-01-02] MEDS: ISOSORBIDE DINITRATE 10 MG TAB PO ×2 (08:27→20:21)
[2019-01-02] MEDS: FAMOTIDINE 20 MG TAB PO ×2 (08:27→20:22)
[2019-01-02] MEDS: ACETYLCYSTEINE 600 MG CAP PO ×2 (12:00→17:16)
[2019-01-02 12:47] LABS: IRON 20 ug/dl (35-150)
[2019-01-02 12:57] LABS: % IRON SATURATION 8 % SAT (22-52); TOTAL IRON BINDING CAPACITY 256 ug/dl (241-421)
[2019-01-02] MEDS: IOHEXOL 14.3 MG(I)/ML (ADULT) BTL PO (13:00)
[2019-01-02] MEDS: IODIXANOL LOCM 100 ML BTL (18:08)
[2019-01-02] MEDS: SOD CHLORIDE 0.9% 100 ML (18:08)
[2019-01-02] MEDS: morphine 2 MG INJ IV (20:08)
[2019-01-02] MEDS: ATORVASTATIN 40 MG TAB PO (20:22)
[2019-01-03] MEDS: LEVALBUTEROL (NEB) 1.25 MG/0.5 ML AMP HHN ×4 (01:28→20:38)
[2019-01-03 06:09] LABS: ADD MAN DIFF? NO
[2019-01-03 06:24] LABS: WHITE BLOOD COUNT 8.5 10^3/ul (4.8-10.8)
[2019-01-03 06:24] LABS: BASOPHIL # 0.1 10^3/ul (0.0-0.1); BASOPHILS % 0.7 % (0.0-2.0); EOSINOPHILS # 0.4 10^3/ul (0.0-0.5); EOSINOPHILS % 4.7 % (0.0-7.0); HEMATOCRIT 36.4 % (42.0-52.0); HEMOGLOBIN 11.7 g/dl (14.0-18.0); LYMPHOCYTES # 1.3 10^3/ul (0.8-2.9); LYMPHOCYTES % 15.7 % (15.0-51.0); MEAN CORPUSCULAR HEMOGLOBIN 28.1 pg (29.0-33.0); MEAN CORPUSCULAR HGB CONC 32.1 g/dl (32.0-37.0); MEAN CORPUSCULAR VOLUME 87.3 fl (82.0-101.0); MEAN PLATELET VOLUME 11.7 fl (7.4-10.4); MONOCYTES % 11.8 % (0.0-11.0); NEUTROPHIL # 5.7 10^3/ul (1.6-7.5); NEUTROPHILS % 66.9 % (39.0-77.0); PLATELET COUNT 224 10^3/UL (140-415); RED BLOOD COUNT 4.17 10^6/ul (4.70-6.10); RED CELL DISTRIBUTION WIDTH 15.3 % (11.5-14.5)
[2019-01-03] MEDS: BUMETANIDE 1 MG TAB PO ×2 (06:42→17:27)
[2019-01-03] MEDS: LEVOTHYROXINE 150 MCG TAB PO (06:42)
[2019-01-03 06:46] LABS: MAGNESIUM 1.8 mg/dl (1.7-2.5)
[2019-01-03 06:58] LABS: ANION GAP 7 (5-13); BLOOD UREA NITROGEN 18 mg/dl (7-20); CALCIUM 8.8 mg/dl (8.4-10.2); CARBON DIOXIDE 31 mmol/L (21-31); CHLORIDE 101 mmol/L (97-110); CREATININE 1.05 mg/dl (0.61-1.24); GLUCOSE 98 mg/dl (70-220); POTASSIUM 3.5 mmol/L (3.5-5.1); SODIUM 139 mmol/L (135-144)
[2019-01-03] MEDS: FAMOTIDINE 20 MG TAB PO ×2 (09:09→20:55)
[2019-01-03] MEDS: ISOSORBIDE DINITRATE 10 MG TAB PO ×2 (09:10→20:56)
[2019-01-03] MEDS: ACETYLCYSTEINE 600 MG CAP PO ×2 (09:10→20:55)
[2019-01-03] MEDS: SPIRONOLACTONE 25 MG TAB PO (09:10)
[2019-01-03] MEDS: SACUBITRIL/VALSARTAN (24mg-26mg) TABLET PO ×2 (09:11→20:56)
[2019-01-03] MEDS: MEROPENEM 1 GM/50ML(PMX) 50 ML IVPB ×2 (09:11→20:55)
[2019-01-03] MEDS: POTASSIUM CHLORIDE 20 MEQ POWDER FOR ORAL SOLN PO (12:54)
[2019-01-03] MEDS: MAGNESIUM SULFATE 2 GM/50 ML 50 ML IVPB (12:55)
[2019-01-03] MEDS: POTASSIUM CHLORIDE (SR) 20 MEQ TAB PO (13:14)
[2019-01-03] MEDS: DOCUSATE SODIUM 100 MG CAP PO (17:46)
[2019-01-03] MEDS: ATORVASTATIN 40 MG TAB PO (20:55)
[2019-01-04] MEDS: morphine 2 MG INJ IV ×2 (01:18→12:34)
[2019-01-04] MEDS: LEVALBUTEROL (NEB) 1.25 MG/0.5 ML AMP HHN ×4 (01:49→19:42)
[2019-01-04] MEDS: BUMETANIDE 1 MG TAB PO ×2 (06:07→17:36)
[2019-01-04] MEDS: LEVOTHYROXINE 150 MCG TAB PO (06:07)
[2019-01-04] MEDS: MEROPENEM 1 GM/50ML(PMX) 50 ML IVPB (08:37)
[2019-01-04] MEDS: ACETYLCYSTEINE 600 MG CAP PO ×2 (08:38→20:35)
[2019-01-04] MEDS: FAMOTIDINE 20 MG TAB PO ×2 (08:38→20:34)
[2019-01-04] MEDS: SACUBITRIL/VALSARTAN (24mg-26mg) TABLET PO ×2 (08:38→20:36)
[2019-01-04] MEDS: SPIRONOLACTONE 25 MG TAB PO (08:38)
[2019-01-04] MEDS: ISOSORBIDE DINITRATE 10 MG TAB PO ×2 (08:38→20:35)
[2019-01-04] MEDS: traMADol 50 MG TAB PO ×2 (14:53→20:35)
[2019-01-04] MEDS: PHENAZOPYRIDINE 100 MG TAB PO (20:35)
[2019-01-04] MEDS: ATORVASTATIN 40 MG TAB PO (20:35)
[2019-01-05] MEDS: LEVALBUTEROL (NEB) 1.25 MG/0.5 ML AMP HHN ×5 (02:02→19:30)
[2019-01-05] MEDS: traMADol 50 MG TAB PO ×4 (02:17→20:52)
[2019-01-05] MEDS: LEVOTHYROXINE 150 MCG TAB PO (06:12)
[2019-01-05] MEDS: BUMETANIDE 1 MG TAB PO ×2 (06:12→18:27)
[2019-01-05 07:02] LABS: ADD MAN DIFF? NO
[2019-01-05 07:12] LABS: WHITE BLOOD COUNT 9.7 10^3/ul (4.8-10.8)
[2019-01-05 07:12] LABS: BASOPHIL # 0.1 10^3/ul (0.0-0.1); BASOPHILS % 0.7 % (0.0-2.0); EOSINOPHILS # 0.3 10^3/ul (0.0-0.5); EOSINOPHILS % 3.5 % (0.0-7.0); HEMATOCRIT 39.8 % (42.0-52.0); HEMOGLOBIN 12.4 g/dl (14.0-18.0); LYMPHOCYTES # 1.4 10^3/ul (0.8-2.9); MEAN CORPUSCULAR HGB CONC 31.2 g/dl (32.0-37.0); MEAN CORPUSCULAR VOLUME 86.7 fl (82.0-101.0); MEAN PLATELET VOLUME 11.5 fl (7.4-10.4); MONOCYTE # 0.9 10^3/ul (0.3-0.9); MONOCYTES % 9.4 % (0.0-11.0); NEUTROPHILS % 72.2 % (39.0-77.0); PLATELET COUNT 271 10^3/UL (140-415); RED BLOOD COUNT 4.59 10^6/ul (4.70-6.10); RED CELL DISTRIBUTION WIDTH 15.1 % (11.5-14.5)
[2019-01-05 07:29] LABS: ANION GAP 7 (5-13); BLOOD UREA NITROGEN 25 mg/dl (7-20); CALCIUM 9.1 mg/dl (8.4-10.2); CARBON DIOXIDE 32 mmol/L (21-31); CHLORIDE 102 mmol/L (97-110); CREATININE 1.47 mg/dl (0.61-1.24); GLUCOSE 103 mg/dl (70-220); POTASSIUM 3.8 mmol/L (3.5-5.1); SODIUM 141 mmol/L (135-144)
[2019-01-05 07:30] LABS: MAGNESIUM 2.1 mg/dl (1.7-2.5)
[2019-01-05] MEDS: SPIRONOLACTONE 25 MG TAB PO (09:40)
[2019-01-05] MEDS: PHENAZOPYRIDINE 100 MG TAB PO ×3 (09:40→20:51)
[2019-01-05] MEDS: FAMOTIDINE 20 MG TAB PO ×2 (09:40→20:52)
[2019-01-05] MEDS: SACUBITRIL/VALSARTAN (24mg-26mg) TABLET PO ×2 (09:41→20:52)
[2019-01-05] MEDS: ACETYLCYSTEINE 600 MG CAP PO (09:41)
[2019-01-05] MEDS: ISOSORBIDE DINITRATE 10 MG TAB PO ×2 (09:42→20:51)
[2019-01-05] MEDS: ATORVASTATIN 40 MG TAB PO (20:52)
[2019-01-06] MEDS: LEVALBUTEROL (NEB) 1.25 MG/0.5 ML AMP HHN ×4 (01:32→19:58)
[2019-01-06] MEDS: traMADol 50 MG TAB PO ×5 (02:00→20:22)
[2019-01-06] MEDS: BUMETANIDE 1 MG TAB PO (05:45)
[2019-01-06] MEDS: LEVOTHYROXINE 150 MCG TAB PO (05:45)
[2019-01-06 07:11] LABS: MAGNESIUM 2.2 mg/dl (1.7-2.5)
[2019-01-06 07:11] LABS: ANION GAP 8 (5-13); BLOOD UREA NITROGEN 33 mg/dl (7-20); CARBON DIOXIDE 30 mmol/L (21-31); CHLORIDE 99 mmol/L (97-110); CREATININE 1.55 mg/dl (0.61-1.24); GLUCOSE 101 mg/dl (70-220); POTASSIUM 3.9 mmol/L (3.5-5.1); SODIUM 137 mmol/L (135-144)
[2019-01-06] MEDS: ISOSORBIDE DINITRATE 10 MG TAB PO ×2 (09:04→20:22)
[2019-01-06] MEDS: SACUBITRIL/VALSARTAN (24mg-26mg) TABLET PO ×2 (09:04→20:22)
[2019-01-06] MEDS: FAMOTIDINE 20 MG TAB PO ×2 (09:04→20:21)
[2019-01-06] MEDS: PHENAZOPYRIDINE 100 MG TAB PO ×3 (09:04→20:22)
[2019-01-06] MEDS: SPIRONOLACTONE 25 MG TAB PO (09:04)
[2019-01-06] MEDS: DOCUSATE SODIUM 100 MG CAP PO (16:04)
[2019-01-06] MEDS: ATORVASTATIN 40 MG TAB PO (20:22)
[2019-01-07] MEDS: LEVALBUTEROL (NEB) 1.25 MG/0.5 ML AMP HHN ×4 (01:33→19:40)
[2019-01-07] MEDS: traMADol 50 MG TAB PO ×4 (02:00→21:04)
[2019-01-07] MEDS: LEVOTHYROXINE 150 MCG TAB PO (05:50)
[2019-01-07] MEDS: DOCUSATE SODIUM 100 MG CAP PO ×2 (05:50→21:04)
[2019-01-07 06:52] LABS: ADD MAN DIFF? NO
[2019-01-07 06:56] LABS: WHITE BLOOD COUNT 9.7 10^3/ul (4.8-10.8)
[2019-01-07 06:56] LABS: BASOPHIL # 0.1 10^3/ul (0.0-0.1); BASOPHILS % 0.6 % (0.0-2.0); EOSINOPHILS # 0.3 10^3/ul (0.0-0.5); EOSINOPHILS % 2.8 % (0.0-7.0); HEMATOCRIT 34.8 % (42.0-52.0); HEMOGLOBIN 11.2 g/dl (14.0-18.0); LYMPHOCYTES # 1.5 10^3/ul (0.8-2.9); LYMPHOCYTES % 15.9 % (15.0-51.0); MEAN CORPUSCULAR HEMOGLOBIN 28.1 pg (29.0-33.0); MEAN CORPUSCULAR HGB CONC 32.2 g/dl (32.0-37.0); MEAN CORPUSCULAR VOLUME 87.4 fl (82.0-101.0); MEAN PLATELET VOLUME 11.1 fl (7.4-10.4); MONOCYTE # 1.2 10^3/ul (0.3-0.9); MONOCYTES % 12.5 % (0.0-11.0); NEUTROPHIL # 6.6 10^3/ul (1.6-7.5); NEUTROPHILS % 67.8 % (39.0-77.0); PLATELET COUNT 240 10^3/UL (140-415); RED BLOOD COUNT 3.98 10^6/ul (4.70-6.10); RED CELL DISTRIBUTION WIDTH 14.9 % (11.5-14.5)
[2019-01-07 07:19] LABS: MAGNESIUM 2.4 mg/dl (1.7-2.5)
[2019-01-07 07:19] LABS: ANION GAP 7 (5-13); BLOOD UREA NITROGEN 37 mg/dl (7-20); CALCIUM 8.7 mg/dl (8.4-10.2); CARBON DIOXIDE 31 mmol/L (21-31); CHLORIDE 97 mmol/L (97-110); CREATININE 1.75 mg/dl (0.61-1.24); GLUCOSE 89 mg/dl (70-220); POTASSIUM 3.7 mmol/L (3.5-5.1); SODIUM 135 mmol/L (135-144)
[2019-01-07] MEDS: SPIRONOLACTONE 25 MG TAB PO (08:42)
[2019-01-07] MEDS: FAMOTIDINE 20 MG TAB PO ×2 (08:42→21:04)
[2019-01-07] MEDS: ISOSORBIDE DINITRATE 10 MG TAB PO ×2 (08:43→21:04)
[2019-01-07] MEDS: BUMETANIDE 1 MG TAB PO (08:43)
[2019-01-07] MEDS: SACUBITRIL/VALSARTAN (24mg-26mg) TABLET PO ×2 (08:44→21:04)
[2019-01-07] MEDS: ATORVASTATIN 40 MG TAB PO (21:04)
[2019-01-08] MEDS: LEVALBUTEROL (NEB) 1.25 MG/0.5 ML AMP HHN ×2 (01:47→08:12)
[2019-01-08] MEDS: traMADol 50 MG TAB PO ×2 (02:32→09:09)
[2019-01-08 03:10] LABS: ADD UMIC YES; UR ASCORBIC ACID NEGATIVE (NEGATIVE); UR BILIRUBIN (Dip) NEGATIVE (NEGATIVE); UR BLOOD (Dip) 3+ mg/dL (NEGATIVE); UR CLARITY SLIGHTLY CLOUDY (CLEAR); UR COLOR AMBER (YELLOW); UR GLUCOSE (Dip) NEGATIVE (NEGATIVE); UR KETONES (Dip) NEGATIVE (NEGATIVE); UR LEUKOCYTE ESTERASE (Dip) 3+ Leu/ul (NEGATIVE); UR NITRITE (Dip) NEGATIVE (NEGATIVE); UR RBC > 182 /HPF (0-5); UR SPECIFIC GRAVITY (Dip) 1.009 (1.003-1.030); UR SQUAMOUS EPITHELIAL CELL FEW /HPF (FEW); UR TOTAL PROTEIN (Dip) 1+ mg/dl (NEGATIVE); UR UROBILINOGEN (Dip) NEGATIVE (NEGATIVE); UR WBC 43 /HPF (0-5)
[2019-01-08 03:12] LABS: CREATININE,URINE RANDOM 45.05 mg/dl (20-370)
[2019-01-08 03:12] LABS: SODIUM,URINE RANDOM 64 mmol/L (30-90)
[2019-01-08] MEDS: LEVOTHYROXINE 150 MCG TAB PO (05:39)
[2019-01-08 06:30] LABS: ADD MAN DIFF? NO
[2019-01-08 06:33] LABS: WHITE BLOOD COUNT 11.1 10^3/ul (4.8-10.8)
[2019-01-08 06:33] LABS: BASOPHIL # 0.1 10^3/ul (0.0-0.1); BASOPHILS % 0.5 % (0.0-2.0); EOSINOPHILS # 0.2 10^3/ul (0.0-0.5); HEMATOCRIT 36.2 % (42.0-52.0); HEMOGLOBIN 11.5 g/dl (14.0-18.0); LYMPHOCYTES # 1.4 10^3/ul (0.8-2.9); LYMPHOCYTES % 12.7 % (15.0-51.0); MEAN CORPUSCULAR HEMOGLOBIN 27.6 pg (29.0-33.0); MEAN CORPUSCULAR HGB CONC 31.8 g/dl (32.0-37.0); MEAN CORPUSCULAR VOLUME 86.8 fl (82.0-101.0); MEAN PLATELET VOLUME 12.3 fl (7.4-10.4); MONOCYTE # 1.4 10^3/ul (0.3-0.9); MONOCYTES % 12.4 % (0.0-11.0); PLATELET COUNT 203 10^3/UL (140-415); POSITIVE DIFF @See below; RED BLOOD COUNT 4.17 10^6/ul (4.70-6.10); RED CELL DISTRIBUTION WIDTH 14.6 % (11.5-14.5)
[2019-01-08 06:55] LABS: PHOSPHORUS 4.3 mg/dl (2.5-4.9)
[2019-01-08 06:59] LABS: ANION GAP 11 (5-13); BLOOD UREA NITROGEN 38 mg/dl (7-20); CALCIUM 8.8 mg/dl (8.4-10.2); CARBON DIOXIDE 28 mmol/L (21-31); CHLORIDE 95 mmol/L (97-110); CREATININE 1.65 mg/dl (0.61-1.24); GLUCOSE 112 mg/dl (70-220); POTASSIUM 4.7 mmol/L (3.5-5.1); SODIUM 134 mmol/L (135-144)
[2019-01-08 07:11] LABS: MAGNESIUM 2.3 mg/dl (1.7-2.5)
[2019-01-08] MEDS: BUMETANIDE 1 MG TAB PO (09:09)
[2019-01-08] MEDS: SACUBITRIL/VALSARTAN (24mg-26mg) TABLET PO (09:09)
[2019-01-08] MEDS: SPIRONOLACTONE 25 MG TAB PO (09:09)
[2019-01-08] MEDS: FAMOTIDINE 20 MG TAB PO (09:10)
[2019-01-08] MEDS: ISOSORBIDE DINITRATE 10 MG TAB PO (09:10)
[2019-01-10 14:52] LABS: CREATININE, RANDOM URINE 45 mg/dL (20-320); MICROALBUMIN 14.1 mg/dL; MICROALBUMIN/CREATININE RATIO 313 (<30)
== END 2019-01-08 13:10 | disposition hospice, home (50) | DRG 656 ==
LOC: TEL 12-24 09:16 → E/R 09:35 → TEL 12-24 10:33 → ICU 12-28 21:29 → 6WM 15:23
PROC: 0VB08ZZ Excision of Prostate, Via Natural or Artificial Opening Endoscopic (ICD-10-PCS; principal; 2018-12-28 17:30)
PROC: 0T788DZ Dilation of Bilateral Ureters with Intraluminal Device, Via Natural or Artificial Opening Endoscopic (ICD-10-PCS; 2018-12-28 17:30)
PROC: 0TBB8ZZ Excision of Bladder, Via Natural or Artificial Opening Endoscopic (ICD-10-PCS; 2018-12-28 17:30)
DX: C67.5 Malignant neoplasm of bladder neck (principal); I50.43 Acute on chronic combined systolic (congestive) and diastolic (congestive) heart failure; I13.0 Hypertensive heart and chronic kidney disease with heart failure and stage 1 through stage 4 chronic kidney disease, or unspecified chronic kidney disease; I42.9 Cardiomyopathy, unspecified; N17.9 Acute kidney failure, unspecified; N39.0 Urinary tract infection, site not specified; I47.1 Supraventricular tachycardia; J96.11 Chronic respiratory failure with hypoxia; R31.0 Gross hematuria; N18.9 Chronic kidney disease, unspecified; I48.0 Paroxysmal atrial fibrillation; I35.0 Nonrheumatic aortic (valve) stenosis; E03.9 Hypothyroidism, unspecified; I25.10 Atherosclerotic heart disease of native coronary artery without angina pectoris; I69.320 Aphasia following cerebral infarction; N47.1 Phimosis; J44.9 Chronic obstructive pulmonary disease, unspecified; D50.0 Iron deficiency anemia secondary to blood loss (chronic); R00.1 Bradycardia, unspecified; I27.20 Pulmonary hypertension, unspecified; K59.00 Constipation, unspecified; C67.6 Malignant neoplasm of ureteric orifice; C67.3 Malignant neoplasm of anterior wall of bladder; C67.2 Malignant neoplasm of lateral wall of bladder; F03.90 Unspecified dementia, unspecified severity, without behavioral disturbance, psychotic disturbance, mood disturbance, and anxiety; B96.20 Unspecified Escherichia coli [E. coli] as the cause of diseases classified elsewhere; Z99.81 Dependence on supplemental oxygen; Z95.1 Presence of aortocoronary bypass graft; Z87.891 Personal history of nicotine dependence
CPT/HCPCS: 36415; 71045; 74018; 74177; 74430; 76775; 80048; 80053; 80061; 80162; 81001; 81003; 82043; 83036; 83540; 83605; 83690; 83735; 83880; 84100; 84155; 84300; 84443; 84484; 85025; 85610; 85730; 87040-91; 87081; 87086; 88305; 93005; 93306; 94640; 94664; 99285-25